=== PATIENT | male | born 1965 | race Caucasian/White ===

== ENCOUNTER → 2024-03-17 | Outpatient (CLI) | payer OTHER, SELFPAY ==
--- NOTE | 2024-03-17 | XR_ITS ---
Examination: Duplex scan of the lower extremity, unilateral left complete Date and time of exam: March 17, 2024 1132 hours INDICATIONS: Left leg swelling and pain beginning 3 weeks ago Technique: Duplex scan of the extremity veins using B-mode/grayscale imaging and Doppler spectral analysis and color flow Attention is directed to internal echogenicity, compression and augmentation involving these veins, color flow assessment, spectral analysis Findings: Major deep venous structures in the extremity demonstrate normal course and caliber. There is no evidence of deep vein thrombosis. Normal color flow and spectral analysis Impression: Negative for DVT..
== END | disposition home or self-care (01) ==
PROVIDERS: PCP Family Medicine; Referring Provider Family Medicine; Visit Provider Family Medicine
DX: M79.605 Pain in left leg (principal); M79.89 Other specified soft tissue disorders
CPT/HCPCS: 93971

== ENCOUNTER 2024-03-24 07:32 | Emergency (ER) | payer OTHER, SELFPAY ==
[2024-03-24 07:52] VITALS: BP 158/77; PULSE 88; RESP 18; TEMP 36.7; O2SAT 96; BMI 26.6
--- NOTE | 2024-03-24 07:55 | PD.EDLOWEX ---
Lower Extremity Injury RME/HPI General Chief Complaint: Extremity Injury, Lower Stated Complaint: left leg pain:wants toradol shot Time Seen by Provider: 03/24/24 07:36 Arrival date/time: 03/24/24 07:32 58-year-old male presents to the emergency department today stating that approximate 1 month ago he had an injection in his spine by specialist up in [place] patient reports since then has been having pain to his left leg. Patient had outpatient ultrasound recently which shows negative for DVT patient requesting Toradol shot Limitations: no limitations Related Data Home Medications ?Medication ?Instructions ?Recorded ?Confirmed duloxetine 60 mg capsule,delayed 60 mg PO BID ##0 04/26/12 08/31/21 release (Cymbalta) aripiprazole 2 mg tablet (Abilify) 30 mg PO HS #0 tabs 03/24/14 08/31/21 buspirone 10 mg tablet 30 mg PO BID 10/18/18 08/31/21 gabapentin 300 mg capsule 300 mg PO TID 10/18/18 08/31/21 quetiapine 50 mg tablet 100 mg PO HS 10/18/18 08/31/21 atorvastatin 10 mg tablet 10 mg PO QDAY 08/31/21 08/31/21 baclofen 10 mg tablet 10 mg PO BID PRN Spasms 08/31/21 08/31/21 [id number]-[id number]-izygrejy 1 drp ophthalmic (eye) TID 08/31/21 08/31/21 80 0.5 %-1 %-0.5 % eye drops (Refresh [facility]) docusate sodium 100 mg capsule 100 cap PO PRN PRN Constipation 08/31/21 08/31/21 furosemide 40 mg tablet 40 mg PO QDAY 08/31/21 08/31/21 ibuprofen 800 mg tablet 800 mg PO TID PRN Pain 08/31/21 08/31/21 ketotifen fumarate 0.025 % (0.035 1 drp ophthalmic (eye) BID 08/31/21 08/31/21 %) eye drops ([facility]) lisinopril 20 1 tab PO QDAY 08/31/21 08/31/21 mg-hydrochlorothiazide 12.5 mg tablet lithium carbonate 300 mg tablet 300 mg PO HS 08/31/21 08/31/21 loratadine 10 mg tablet 10 mg PO QDAY 08/31/21 08/31/21 mirtazapine 30 mg disintegrating 30 mg PO HS 08/31/21 08/31/21 tablet oxycodone-acetaminophen 7.5 mg-325 1 tab PO TID 08/31/21 08/31/21 mg tablet Previous Rx's ?Medication ?Instructions ?Recorded cyclobenzaprine 10 mg tablet 10 mg PO TID PRN muscle spasm 10 03/24/24 days #30 tab-caps Allergies Allergy/AdvReac Type Severity Reaction Status Date / Time morphine Allergy Mild Nausea/Vomi Verified 03/24/24 07:34 tiing Penicillins Allergy Mild SWELLING Verified 03/24/24 07:34 Review of Systems Review of Systems Systems Reviewed: All systems reviewed, normal except as documented Constitutional Constitutional: Reports system reviewed and no additional complaints, except as documented, Denies fever(s) and Denies headache(s) Eyes Eyes: Reports system reviewed and no additional complaints, except as documented and Denies blurry vision ENT Ears, Nose, Mouth, and Throat: Reports system reviewed and no additional complaints, except as documented, Denies headache(s), Denies nasal congestion, Denies nasal discharge and Denies neck pain Cardiovascular Cardiovascular: Reports system reviewed and no additional complaints, except as documented, Denies chest pain and Denies dyspnea Respiratory Respiratory: Reports system reviewed and no additional complaints, except as documented, Denies chest congestion, Denies cough and Denies dyspnea Gastrointestinal Gastrointestinal: Reports system reviewed and no additional complaints, except as documented and Denies abdominal pain Musculoskeletal Musculoskeletal: Reports system reviewed and no additional complaints, except as documented, Denies abnormal gait, Denies arthralgias, Denies joint swelling, Denies neck pain, Denies numbness, Reports stiffness, Denies tingling and Reports other (Leg pain left) Integumentary/Breasts Skin/Breast: Reports system reviewed and no additional complaints, except as documented and Denies rash Neurologic Neurologic: Reports system reviewed and no additional complaints, except as documented, Reports as per HPI, Denies abnormal gait, Denies headache(s), Denies numbness and Denies tingling Past Medical History Past Medical History NEUROLOGIC: Negative Neurological Disorders CARDIAC: Negative Cardiac Disorders ED Exam General Limitations: Present no limitations General appearance: Present alert and in no apparent distress Head Head exam: Present atraumatic, normocephalic and normal inspection Eye Eye exam: Present normal appearance, PERRL and EOMI; Absent conjunctival injection ENT ENT exam: Present normal exam, normal oropharynx and mucous membranes moist Neck Neck exam: Present normal inspection, full ROM and trachea midline Chest Chest inspection: Present normal inspection and symmetric chest wall rise Respiratory Respiratory exam: Present normal lung sounds bilaterally; Absent respiratory distress Cardiovascular Cardiovascular exam: Present regular rate, normal rhythm and normal heart sounds Abdominal Exam Abdominal exam: Present soft and normal bowel sounds; Absent distention, tenderness, guarding, rebound or rigidity Extremities Exam Extremities exam: Present normal inspection, full ROM, normal capillary refill, calf tenderness (Pain in the christensen and calf) and other; Absent tenderness, pedal edema or joint swelling Back Exam Back exam: Present normal inspection and full ROM; Absent tenderness, CVA tenderness (R), CVA tenderness (L), muscle spasm, paraspinal tenderness or vertebral tenderness Neurological Exam Neurological exam: Present alert, oriented X3, CN II-XII intact, normal gait and reflexes normal; Absent motor sensory deficit Psychiatric Psychiatric exam: Present normal affect and normal mood Skin Skin exam: Present warm, dry, intact and normal color Course Quality Measures none Orders Category Date Time Status Ketorolac Inj [Toradol Inj] Med 03/24/24 07:55 Discontinued 30 mg IM X1 ONE Vital Signs Vital signs: Vital Signs Temperature 98.0 F 03/24/24 07:52 Pulse Rate 88 03/24/24 07:52 Respiratory Rate 18 03/24/24 07:52 Blood Pressure 158/77 H 03/24/24 07:52 Pulse Oximetry (%) 96 03/24/24 07:52 Oxygen Delivery Method Room Air 03/24/24 07:52 O2 saturation 96% room air within normal limits Extremity Injury, Lower MDM Narrative MDM Narrative:: 58-year-old male presents to the emergency department today stating that approximate 1 month ago he had an injection in his spine by specialist up in [place] patient reports since then has been having pain to his left leg. Patient had outpatient ultrasound recently which shows negative for DVT patient requesting Toradol shot On exam patient well-appearing patient does not appear ill or toxic patient walks with steady gait Patient reports no saddle anesthesia no loss of bowel or bladder Patient discharged home in no distress to follow-up with primary care doctor in the next 24 to 48 hours and for any worsening symptoms to return to the ER immediately Patient data External records reviewed:: [facility] previous records Clinical information provided by:: patient Social determinants that could affect healthcare access:: none Patient has the following chronic illnesses:: None How is presenting disease/condition affected by chronic disease/condition?: no chronic disease Evaluation data The following diagnostics were reviewed and interpreted by me:: other (specify) (N/A) Lab and/or radiology exams considered but not ordered:: Radiology 7 days ago Interpretation Summary: Findings: Major deep venous structures in the extremity demonstrate normal course and caliber. There is no evidence of deep vein thrombosis. Normal color flow and spectral analysis Impression: Negative for DVT.. Dictated By: Darrel Up MD Signed By: <Electronically signed by Darrel Up MD in [place]> 03/17/24 1530 DD/ 1529 Medications / Prescriptions Medications or Prescriptions considered but not ordered:: Given Medication administrations:: Medication Administration History Discontinued Medications Ketorolac Tromethamine (Ketorolac Inj 30 Mg/Ml Vial) 30 mg IM X1 ONE Stop: 03/24/24 07:56 Last Admin: 03/24/24 08:00 Dose: 30 mg Documented By: GM Given Consultations Consultation(s) initiated? (list below): No Diagnosis Most likely diagnosis given after review of the tests above:: No criteria Admission Indicated Admission indicated?: not indicated Admission Request Was there a request for admission?: No Disposition Plan Disposition Plan: Discharge Discharge Attestation Discharge Attestation: The patient and all family members were given an opportunity to ask questions and understood the discharge instructions. Discharge instructions specifically effects, indications for sooner follow up or return to the emergency department, and the expected course of current diagnosis. Patient condition: Stable Discharge Plan Plan Patient Disposition: HOME (Self Care) Disposition Comment: Stable Prescriptions/Referrals Prescriptions/Med Rec: New cyclobenzaprine 10 mg tablet 10 mg PO TID PRN (Reason: muscle spasm) 10 Days Qty: 30 0RF No Action duloxetine [Cymbalta] 60 MG capsule,delayed release(DR/EC) 60 mg PO BID Qty: 0 aripiprazole [Abilify] 2 MG tablet 30 mg PO HS Qty: 0 buspirone 10 mg Tablet 30 mg PO BID gabapentin 300 mg Capsule 300 mg PO TID quetiapine 50 mg Tablet 100 mg PO HS docusate sodium 100 mg capsule 100 cap PO PRN PRN (Reason: Constipation) Refresh Optive Advanced 0.5-1-0.5 % drops 1 drp OPHTHALMIC (EYE) TID furosemide 40 mg Tablet 40 mg PO QDAY Hold Instructions: Resume on 10/02/21. Follow-up with primary care provider within 1 to 2 weeks of discharge to discuss when to resume mirtazapine 30 mg Tablet,Disintegrating 30 mg PO HS lisinopril-hydrochlorothiazide 20-12.5 mg Tablet 1 tab PO QDAY Hold Instructions: Resume on 10/02/21. Follow-up with PCP regarding when safe to resume ibuprofen 800 mg Tablet 800 mg PO TID PRN (Reason: Pain) baclofen 10 mg Tablet 10 mg PO BID PRN (Reason: Spasms) oxycodone-acetaminophen 7.5-325 mg Tablet 1 tab PO TID lithium carbonate 300 mg Tablet 300 mg PO HS loratadine 10 mg Tablet 10 mg PO QDAY atorvastatin 10 mg Tablet 10 mg PO QDAY ketotifen fumarate [[facility]] 0.025 % (0.035 %) drops 1 drp OPHTHALMIC (EYE) BID Problem List Clinical Impression: Left leg pain Patient/Caregiver Discharge Instructions Education Materials: ED RICE Additional Instructions: Please follow-up with PCP for further evaluation he may need an MRI for further evaluation for worsening concerns return immediately Print Language: Polish Stand Alone Forms: Jessi Award Info., Patient Portal Info Letter PA/NEO Supervising Physician PA/NEO Supervising Physician: Dr [email or web address]
[2024-03-24] MEDS: KETOROLAC INJ 30 MG/ML VIAL IM (08:00)
== END 2024-03-24 08:05 | disposition home or self-care (01) ==
LOC: SERX 08:08
PROVIDERS: Emergency Provider Emergency Medicine; PCP Family Medicine
DX: M79.605 Pain in left leg (principal)
CPT/HCPCS: 96372; 99283; J1885

== ENCOUNTER 2024-03-26 07:48 | Emergency (ER) | payer OTHER, SELFPAY ==
[2024-03-26 08:35] VITALS: BP 150/76; PULSE 87; RESP 19; TEMP 36.9; O2SAT 98; BMI 26.7
--- NOTE | 2024-03-26 09:40 | EDNOTE_ITS ---
Lower Extremity Injury RME/HPI General Chief Complaint: Extremity Injury, Lower Stated Complaint: Leg pain bilateral Time Seen by Provider: 03/26/24 08:10 Source: patient Arrival date/time: 03/26/24 07:48 58-year-old male presents to the emergency department today, history of degenerative disc disease was evaluated by neurosurgeon cheese specialist had spinal injection reports since then he has had exacerbating sciatica symptoms. Reports pain from lumbar area radiating to left leg. Reports 2 days ago had a Toradol shot. Patient had outpatient ultrasound recently which shows negative for DVT. patient requesting Toradol shot. Patient currently at home on [place], gabapentin. Mode of arrival: ambulatory Limitations: no limitations Related Data Home Medications ?Medication ?Instructions ?Recorded ?Confirmed duloxetine 60 mg capsule,delayed 60 mg PO BID ##0 04/26/12 08/31/21 release (Cymbalta) aripiprazole 2 mg tablet (Abilify) 30 mg PO HS #0 tabs 03/24/14 08/31/21 buspirone 10 mg tablet 30 mg PO BID 10/18/18 08/31/21 gabapentin 300 mg capsule 300 mg PO TID 10/18/18 08/31/21 quetiapine 50 mg tablet 100 mg PO HS 10/18/18 08/31/21 atorvastatin 10 mg tablet 10 mg PO QDAY 08/31/21 08/31/21 baclofen 10 mg tablet 10 mg PO BID PRN Spasms 08/31/21 08/31/21 [id number]-[id number]-nqkgyixu 1 drp ophthalmic (eye) TID 08/31/21 08/31/21 80 0.5 %-1 %-0.5 % eye drops (Refresh [employer]ive Advanced) docusate sodium 100 mg capsule 100 cap PO PRN PRN Constipation 08/31/21 08/31/21 furosemide 40 mg tablet 40 mg PO QDAY 08/31/21 08/31/21 ibuprofen 800 mg tablet 800 mg PO TID PRN Pain 08/31/21 08/31/21 ketotifen fumarate 0.025 % (0.035 1 drp ophthalmic (eye) BID 08/31/21 08/31/21 %) eye drops ([facility]) lisinopril 20 1 tab PO QDAY 07/01/22 07/01/22 mg-hydrochlorothiazide 12.5 mg tablet lithium carbonate 300 mg tablet 300 mg PO HS 08/31/21 08/31/21 loratadine 10 mg tablet 10 mg PO QDAY 08/31/21 08/31/21 mirtazapine 30 mg disintegrating 30 mg PO HS 08/31/21 08/31/21 tablet oxycodone-acetaminophen 7.5 mg-325 1 tab PO TID 08/31/21 08/31/21 mg tablet Previous Rx's ?Medication ?Instructions ?Recorded cyclobenzaprine 10 mg tablet 10 mg PO TID PRN muscle spasm 10 03/24/24 days #30 tab-caps Allergies Allergy/AdvReac Type Severity Reaction Status Date / Time morphine Allergy Mild Nausea/Vomi Verified 03/24/24 07:34 tiing Penicillins Allergy Mild SWELLING Verified 03/24/24 07:34 Review of Systems Review of Systems Systems Reviewed: All systems reviewed, normal except as documented Narrative Review of Systems: Gen: No fever, no chills, no weight loss EYES: No discharge, no visual changes, no pain HEENT: No ear pain, no congestion, no sore throat PULM: No shortness of breath, no cough, no congestion CV: No chest pain, no dyspnea on exertion, no palpitations GI: No nausea, no vomiting, no diarrhea, no pain, no constipation : No frequency, no urgency,? no dysuria Musc/skel: No joint pain, + back pain Skin: No rash? ED Exam Narrative Physical exam: General: Sittiing in Exam table in no acute distress, answering questions appropriately HENT: normocephalic, atraumatic, EOMI, PERRLA, moist mucous membranes Chest: chest wall is nontender Cardiac: regular rate and rhythm, normal S1 and S2, no murmurs, rubs, or gallops, capillary refill ?2 seconds Pulmonary: clear to auscultation bilaterally, no wheezing, crackles, or rhonchi Abdominal: active bowel sounds, soft, nontender, nondistended Neuro: A&OX3, CN II-XII intact, sensation grossly intact bilaterally in UE and LE. Skin: no rashes, no ecchymosis Ext: no lower extremity edema General Limitations: Present no limitations Course Quality Measures none Orders Category Date Time Status Ketorolac Inj [Toradol Inj] Med 03/26/24 08:52 Discontinued 60 mg IM X1 ONE Vital Signs Vital signs: Vital Signs Temperature 98.5 F 03/26/24 08:35 Pulse Rate 87 03/26/24 08:35 Respiratory Rate 19 03/26/24 08:35 Blood Pressure 150/76 H 03/26/24 08:35 Pulse Oximetry (%) 98 03/26/24 08:35 Oxygen Delivery Method Room Air 03/26/24 08:35 Extremity Injury, Lower MDM Narrative MDM Narrative:: 58-year-old male presents to the emergency department today stating that approximate 1 month ago he had an injection in his spine by specialist up in [place] patient reports since then has been having pain to his left leg. Im toradol here in ED On exam patient well-appearing patient does not appear ill or toxic patient walks with steady gait Patient reports no saddle anesthesia no loss of bowel or bladder Patient discharged home in no distress to follow-up with primary care doctor in the next 24 to 48 hours and for any worsening symptoms to return to the ER immediately Patient data External records reviewed:: [facility] previous records Clinical information provided by:: patient Social determinants that could affect healthcare access:: none Patient has the following chronic illnesses:: None How is presenting disease/condition affected by chronic disease/condition?: no chronic disease Evaluation data The following diagnostics were reviewed and interpreted by me:: other (specify) (N/A) Lab and/or radiology exams considered but not ordered:: Radiology 7 days ago Interpretation Summary: Findings: Major deep venous structures in the extremity demonstrate normal course and caliber. There is no evidence of deep vein thrombosis. Normal color flow and spectral analysis Impression: Negative for DVT.. Dictated By: Darrel Up MD Signed By: <Electronically signed by Darrel Up MD in [place]> 03/17/24 1530 DD/ 1529 Medications / Prescriptions Medications or Prescriptions considered but not ordered:: Given Medication administrations:: Medication Administration History Discontinued Medications Ketorolac Tromethamine (Ketorolac Inj 60 Mg/2 Ml Vial) 60 mg IM X1 ONE Stop: 03/26/24 08:53 Given Consultations Consultation(s) initiated? (list below): No Diagnosis Extremity Injury, Lower Differential Diagnosis: other (Degenerative disc disease, lumbar spine, lumbar strain.) Most likely diagnosis given after review of the tests above:: Degenerative disc pain sciatica Admission Indicated Admission indicated?: not indicated Admission Request Was there a request for admission?: No Disposition Plan Disposition Plan: Discharge Discharge Attestation Discharge Attestation: The patient and all family members were given an opportunity to ask questions and understood the discharge instructions. Discharge instructions specifically effects, indications for sooner follow up or return to the emergency department, and the expected course of current diagnosis. Patient condition: Stable Discharge Plan Plan Patient Disposition: HOME (Self Care) Patient condition on transfer: Stable Prescriptions/Referrals Prescriptions/Med Rec: No Action duloxetine [Cymbalta] 60 MG capsule,delayed release(DR/EC) 60 mg PO BID Qty: 0 aripiprazole [Abilify] 2 MG tablet 30 mg PO HS Qty: 0 buspirone 10 mg Tablet 30 mg PO BID gabapentin 300 mg Capsule 300 mg PO TID quetiapine 50 mg Tablet 100 mg PO HS docusate sodium 100 mg capsule 100 cap PO PRN PRN (Reason: Constipation) Refresh Optive Advanced 0.5-1-0.5 % drops 1 drp OPHTHALMIC (EYE) TID furosemide 40 mg Tablet 40 mg PO QDAY Hold Instructions: Resume on 10/02/21. Follow-up with primary care provider within 1 to 2 weeks of discharge to discuss when to resume mirtazapine 30 mg Tablet,Disintegrating 30 mg PO HS lisinopril-hydrochlorothiazide 20-12.5 mg Tablet 1 tab PO QDAY Hold Instructions: Resume on 10/02/21. Follow-up with PCP regarding when safe to resume ibuprofen 800 mg Tablet 800 mg PO TID PRN (Reason: Pain) baclofen 10 mg Tablet 10 mg PO BID PRN (Reason: Spasms) oxycodone-acetaminophen 7.5-325 mg Tablet 1 tab PO TID lithium carbonate 300 mg Tablet 300 mg PO HS loratadine 10 mg Tablet 10 mg PO QDAY atorvastatin 10 mg Tablet 10 mg PO QDAY ketotifen fumarate [[facility]] 0.025 % (0.035 %) drops 1 drp OPHTHALMIC (EYE) BID cyclobenzaprine 10 mg tablet 10 mg PO TID PRN (Reason: muscle spasm) 10 Days Qty: 30 0RF Referrals: Venice Gomez MD [Primary Care Provider] - In 1 week Problem List Clinical Impression: Chronic lumbar radiculopathy Patient/Caregiver Discharge Instructions Discharge Activity: activity as tolerated Education Materials: ED Sciatica Additional Instructions: -You will need to rest and have activities modification avoid heavy lifting twisting motions or prolonged sitting or standing. -Will need to follow-up with your doctor in 2 to 3 days for follow-up care Might need physical therapy Might need referral for MRI outpatient, Diagnostic imaging (like MRI) might be used to assess the extent of the bulging disc, particularly if symptoms worsen or persist. -Medications sent please use as directed Can include ibuprofen, muscle relaxant Lifestyle modifications weight reduction Return to the emergency department this any worsening symptoms change in condition. Print Language: Mohawk Stand Alone Forms: Jessi Award Info., Patient Portal Info Letter PA/NEO Supervising Physician TOM/NEO Supervising Physician: Dr. Rodriguez
[2024-03-26] MEDS: KETOROLAC INJ 60 MG/2 ML VIAL IM (09:44)
== END 2024-03-26 10:16 | disposition home or self-care (01) ==
PROVIDERS: Emergency Provider Emergency Medicine; PCP Family Medicine
DX: M54.16 Radiculopathy, lumbar region (principal)
CPT/HCPCS: 96372; 99283; J1885

== ENCOUNTER 2024-03-31 16:56 | Emergency (ER) | payer OTHER, SELFPAY ==
[2024-03-31 17:28] VITALS: BP 122/73; PULSE 85; RESP 18; TEMP 36.6; O2SAT 99; BMI 26.7
--- NOTE | 2024-03-31 17:54 | PD.EDLOWEX ---
Lower Extremity Injury RME/HPI General Chief Complaint: Extremity Injury, Lower Stated Complaint: LEFT LEG SWOLLEN AND PAINFUL X1 WEEK Time Seen by Provider: 03/31/24 17:41 Arrival date/time: 03/31/24 16:56 RME / HPI RME / HPI Narrative: 59-year-old male patient came in for evaluation regarding left leg pain and swelling. This been ongoing for the last 1 week, severity of symptoms moderate. Patient also complained of low back pain and sciatica. Seen by spine surgeon, and had steroid shots to the back. Patient was seen here last week, and ultrasound of the same leg was done and negative for DVT. Denies any other complaints no medications taken prior to arrival. Related Data Home Medications ?Medication ?Instructions ?Recorded ?Confirmed duloxetine 60 mg capsule,delayed 60 mg PO BID ##0 04/26/12 08/31/21 release (Cymbalta) aripiprazole 2 mg tablet (Abilify) 30 mg PO HS #0 tabs 03/24/14 08/31/21 buspirone 10 mg tablet 30 mg PO BID 10/18/18 08/31/21 gabapentin 300 mg capsule 300 mg PO TID 10/18/18 08/31/21 quetiapine 50 mg tablet 100 mg PO HS 10/18/18 08/31/21 atorvastatin 10 mg tablet 10 mg PO QDAY 08/31/21 08/31/21 baclofen 10 mg tablet 10 mg PO BID PRN Spasms 08/31/21 08/31/21 knpkhddiqyjxyezfahqglp-gysxyqjc-mckkczam 1 drp ophthalmic (eye) TID 08/31/21 08/31/21 80 0.5 %-1 %-0.5 % eye drops ([facility]) docusate sodium 100 mg capsule 100 cap PO PRN PRN Constipation 08/31/21 08/31/21 furosemide 40 mg tablet 40 mg PO QDAY 08/31/21 08/31/21 Held on 09/01/21. Instructions: Resume on 10/02/21. Follow-up with primary care provider within 1 to 2 weeks of discharge to discuss when to resume ibuprofen 800 mg tablet 800 mg PO TID PRN Pain 08/31/21 08/31/21 ketotifen fumarate 0.025 % (0.035 1 drp ophthalmic (eye) BID 08/31/21 08/31/21 %) eye drops ([facility]) lisinopril 20 1 tab PO QDAY 08/31/21 08/31/21 mg-hydrochlorothiazide 12.5 mg tablet Held on 09/01/21. Instructions: Resume on 10/02/21. Follow-up with PCP regarding when safe to resume lithium carbonate 300 mg tablet 300 mg PO HS 08/31/21 08/31/21 loratadine 10 mg tablet 10 mg PO QDAY 08/31/21 08/31/21 mirtazapine 30 mg disintegrating 30 mg PO HS 08/31/21 08/31/21 tablet oxycodone-acetaminophen 7.5 mg-325 1 tab PO TID 08/31/21 08/31/21 mg tablet Previous Rx's ?Medication ?Instructions ?Recorded cyclobenzaprine 10 mg tablet 10 mg PO TID PRN muscle spasm 10 03/24/24 days #30 tab-caps furosemide 40 mg tablet (Lasix) 40 mg PO QDAY #20 tabs 03/31/24 potassium chloride 20 mEq 20 meq PO QDAY #20 tabs 03/31/24 tablet,extended release Allergies Allergy/AdvReac Type Severity Reaction Status Date / Time morphine Allergy Mild Nausea/Vomi Verified 03/31/24 16:57 tiing Penicillins Allergy Mild SWELLING Verified 03/31/24 16:57 Review of Systems Review of Systems Narrative Review of Systems: Review of system reviewed and within normal limits except mentioned in HPI ED Exam Narrative Physical exam: VITAL SIGNS: Reviewed. GENERAL APPEARANCE: Alert and interactive, follows commands, no acute distress, HEAD AND FACE: Non-traumatic. ENT: PERRL, pink conjunctivitis, eyelid no trauma, Mucous membrane moist. NECK: Supple, nontender, no nuchal rigidity. CHEST: No tenderness, no crepitus, no paradoxical movement, no retractions. LUNGS: Clear, well ventilated, symmetric, no rales, no wheezing, no ronchi, no stridor, good breath sounds bilaterally. HEART: Regular rate, regular rhythm, no murmur, no gallops. ABDOMEN: Soft, positive bowel sounds, nondistended, no guarding, nontender, no rebound, no masses, RECTAL: Deferred. GENITAL: Deferred. NEUROLOGICAL: Gross motor function intact sensory function intact, Appropriate for age. MUSCULOSKELETAL: low back nontender, full range of motion. EXTREMITIES: Left lower leg swelling, no tenderness to the calf muscle, no redness,, full range of motion. SKIN: Color pink, dry, no rash, no lacerations, no abrasions, no contusions. LYMPHATICS: Deferred. Course Quality Measures none Orders Category Date Time Status Furosemide [Lasix] Med 03/31/24 17:53 Discontinued 40 mg PO X1 ONE Ketorolac Inj [Toradol Inj] Med 03/31/24 17:53 Discontinued 30 mg IM X1 ONE Vital Signs Vital signs: Vital Signs Temperature 97.8 F 03/31/24 17:28 Pulse Rate 85 03/31/24 17:28 Respiratory Rate 18 03/31/24 17:28 Blood Pressure 122/73 03/31/24 17:28 Pulse Oximetry (%) 99 03/31/24 17:28 Oxygen Delivery Method Room Air 03/31/24 17:28 Extremity Injury, Lower MDM Narrative MDM Narrative:: 59-year-old male patient came in for evaluation regarding left leg pain and swelling. This been ongoing for the last 1 week, severity of symptoms moderate. Patient also complained of low back pain and sciatica. Seen by spine surgeon, and had steroid shots to the back. Patient was seen here last week, and ultrasound of the same leg was done and negative for DVT. Denies any other complaints no medications taken prior to arrival. Imaging repeat is not needed at this time, patient had ultrasound that same leg, same complaints last week. Came back unremarkable. Patient will be sent home on Lasix. Patient data External records reviewed:: None Clinical information provided by:: patient Social determinants that could affect healthcare access:: none Patient has the following chronic illnesses:: Chronic back pain, hypertension How is presenting disease/condition affected by chronic disease/condition?: no chronic disease Evaluation data The following diagnostics were reviewed and interpreted by me:: other (specify) Lab and/or radiology exams considered but not ordered:: None Interpretation Summary: None Medications / Prescriptions Medications or Prescriptions considered but not ordered:: None Medication administrations:: Medication Administration History Discontinued Medications Furosemide (Furosemide 40 Mg Tablet) 40 mg PO X1 ONE Stop: 03/31/24 17:54 Ketorolac Tromethamine (Ketorolac Inj 60 Mg/2 Ml Vial) 30 mg IM X1 ONE Stop: 03/31/24 17:54 None Consultations Consultation(s) initiated? (list below): No Diagnosis Extremity Injury, Lower Differential Diagnosis: other (Leg edema, leg pain, chronic leg pain, sciatica) Most likely diagnosis given after review of the tests above:: Leg edema, sciatica Admission Indicated Admission indicated?: not indicated Explain why admission is indicated or not indicated:: None Admission Request Was there a request for admission?: No Disposition Plan Disposition Plan: Discharge Discharge Attestation Discharge Attestation: The patient was given an opportunity to ask questions and understood the discharge instructions. Discharge instructions specifically effects, indications for sooner follow up or return to the emergency department, and the expected course of current diagnosis. Patient condition: Stable Discharge Plan Plan Patient Disposition: HOME (Self Care) Disposition Comment: Stable Prescriptions/Referrals Prescriptions/Med Rec: New furosemide [Lasix] 40 mg tablet 40 mg PO QDAY Qty: 20 0RF potassium chloride 20 mEq tablet extended release 20 meq PO QDAY Qty: 20 0RF No Action duloxetine [Cymbalta] 60 MG capsule,delayed release(DR/EC) 60 mg PO BID Qty: 0 aripiprazole [Abilify] 2 MG tablet 30 mg PO HS Qty: 0 buspirone 10 mg Tablet 30 mg PO BID gabapentin 300 mg Capsule 300 mg PO TID quetiapine 50 mg Tablet 100 mg PO HS docusate sodium 100 mg capsule 100 cap PO PRN PRN (Reason: Constipation) Refresh [facility] 0.5-1-0.5 % drops 1 drp OPHTHALMIC (EYE) TID furosemide 40 mg Tablet 40 mg PO QDAY mirtazapine 30 mg Tablet,Disintegrating 30 mg PO HS lisinopril-hydrochlorothiazide 20-12.5 mg Tablet 1 tab PO QDAY ibuprofen 800 mg Tablet 800 mg PO TID PRN (Reason: Pain) baclofen 10 mg Tablet 10 mg PO BID PRN (Reason: Spasms) oxycodone-acetaminophen 7.5-325 mg Tablet 1 tab PO TID lithium carbonate 300 mg Tablet 300 mg PO HS loratadine 10 mg Tablet 10 mg PO QDAY atorvastatin 10 mg Tablet 10 mg PO QDAY ketotifen fumarate [[facility]] 0.025 % (0.035 %) drops 1 drp OPHTHALMIC (EYE) BID cyclobenzaprine 10 mg tablet 10 mg PO TID PRN (Reason: muscle spasm) 10 Days Qty: 30 0RF Problem List Clinical Impression: Leg edema Patient/Caregiver Discharge Instructions Discharge Activity: activity as tolerated Education Materials: Taking a Diuretic Additional Instructions: Thank you for the opportunity for serving you today. You are stable for discharged . You are advised to: Follow-up with your PCP in 1 to 2 days Return to ED for worsening of symptoms Take medication as prescribed Print Language: Tunisian Stand Alone Forms: Jessi Award Info., Patient Portal Info Letter PA/NEO Supervising Physician TOM/NEO Supervising Physician: Md Ady
[2024-03-31] MEDS: KETOROLAC INJ 60 MG/2 ML VIAL 30 MG IM (18:07)
[2024-03-31 18:08] VITALS: BP 122/73; PULSE 85
[2024-03-31] MEDS: Furosemide 40 MG TABLET PO (18:08)
== END 2024-03-31 20:19 | disposition home or self-care (01) ==
LOC: SERX 18:21
PROVIDERS: Emergency Provider Emergency Medicine; PCP Family Medicine
DX: R60.0 Localized edema (principal); M54.42 Lumbago with sciatica, left side
CPT/HCPCS: 96372; 99283; J1885; A9270

== ENCOUNTER 2024-04-06 11:21 | Emergency (ER) | payer OTHER, SELFPAY ==
[2024-04-06 11:22] VITALS: BMI 26.7
[2024-04-06 11:30] VITALS: BP 155/77; PULSE 83; RESP 19; TEMP 36.6; O2SAT 99
--- NOTE | 2024-04-06 11:31 | PD.EDEXREM ---
ED Extremity Problem RME/HPI General Chief complaint: Extremity Problem,Nontraumatic Stated complaint: LEFT LEG PAIN Time Seen by Provider: 04/06/24 11:31 Arrival date/time: 04/06/24 11:21 59-year-old male with chronic left leg pain presents emergency department today stating he has left leg pain today patient requests Toradol shot request no other medications request no other intervention of any kind patient reports is followed by his PCP Limitations: no limitations Related Data Home Medications ?Medication ?Instructions ?Recorded ?Confirmed duloxetine 60 mg capsule,delayed 60 mg PO BID ##0 04/26/12 08/31/21 release (Cymbalta) aripiprazole 2 mg tablet (Abilify) 30 mg PO HS #0 tabs 03/24/14 08/31/21 buspirone 10 mg tablet 30 mg PO BID 10/18/18 08/31/21 gabapentin 300 mg capsule 300 mg PO TID 10/18/18 08/31/21 quetiapine 50 mg tablet 100 mg PO HS 10/18/18 08/31/21 atorvastatin 10 mg tablet 10 mg PO QDAY 08/31/21 08/31/21 baclofen 10 mg tablet 10 mg PO BID PRN Spasms 08/31/21 08/31/21 vonlrfopdiamsuxqyrdrbn-tkmtrrko-hemnlylt 1 drp ophthalmic (eye) TID 08/31/21 08/31/21 80 0.5 %-1 %-0.5 % eye drops ([facility]) docusate sodium 100 mg capsule 100 cap PO PRN PRN Constipation 08/31/21 08/31/21 furosemide 40 mg tablet 40 mg PO QDAY 08/31/21 08/31/21 Held on 09/01/21. Instructions: Resume on 10/02/21. Follow-up with primary care provider within 1 to 2 weeks of discharge to discuss when to resume ibuprofen 800 mg tablet 800 mg PO TID PRN Pain 08/31/21 08/31/21 ketotifen fumarate 0.025 % (0.035 1 drp ophthalmic (eye) BID 08/31/21 08/31/21 %) eye drops ([facility]) lisinopril 20 1 tab PO QDAY 08/31/21 08/31/21 mg-hydrochlorothiazide 12.5 mg tablet Held on 09/01/21. Instructions: Resume on 10/02/21. Follow-up with PCP regarding when safe to resume lithium carbonate 300 mg tablet 300 mg PO HS 08/31/21 08/31/21 loratadine 10 mg tablet 10 mg PO QDAY 08/31/21 08/31/21 mirtazapine 30 mg disintegrating 30 mg PO HS 08/31/21 08/31/21 tablet oxycodone-acetaminophen 7.5 mg-325 1 tab PO TID 08/31/21 08/31/21 mg tablet Previous Rx's ?Medication ?Instructions ?Recorded furosemide 40 mg tablet (Lasix) 40 mg PO QDAY #20 tabs 03/31/24 potassium chloride 20 mEq 20 meq PO QDAY #20 tabs 03/31/24 tablet,extended release Allergies Allergy/AdvReac Type Severity Reaction Status Date / Time morphine Allergy Mild Nausea/Vomi Verified 04/06/24 11:24 tiing Penicillins Allergy Mild SWELLING Verified 04/06/24 11:24 Review of Systems Review of Systems Systems Reviewed: All systems reviewed, normal except as documented Constitutional Constitutional: Reports system reviewed and no additional complaints, except as documented, Denies fever(s) and Denies headache(s) Eyes Eyes: Reports system reviewed and no additional complaints, except as documented and Denies blurry vision ENT Ears, Nose, Mouth, and Throat: Reports system reviewed and no additional complaints, except as documented, Denies headache(s), Denies nasal congestion and Denies nasal discharge Cardiovascular Cardiovascular: Reports system reviewed and no additional complaints, except as documented, Denies chest pain and Denies dyspnea Respiratory Respiratory: Reports system reviewed and no additional complaints, except as documented, Denies chest congestion, Denies cough and Denies dyspnea Gastrointestinal Gastrointestinal: Reports system reviewed and no additional complaints, except as documented and Denies abdominal pain Musculoskeletal Musculoskeletal: Reports system reviewed and no additional complaints, except as documented, Reports arthralgias and Denies deformity Integumentary/Breasts Skin/Breast: Reports system reviewed and no additional complaints, except as documented and Denies rash Neurologic Neurologic: Reports system reviewed and no additional complaints, except as documented, Reports as per HPI and Denies headache(s) Past Medical History Past Medical History NEUROLOGIC: Positive Traumatic Brain Injury; Negative Neurological Disorders CARDIAC: Positive Hypercholesterolemia, Hypertension and Hypotension; Negative Cardiac Disorders or Congestive Heart Failure RESPIRATORY: Negative Chronic Obstructive Pulmonary Disease (COPD) GASTROINTESTINAL: Negative Gastrointestinal Disorders or Hepatitis GENITOURINARY: Positive Genitourinary Disorders and Kidney Stones; Negative Renal Disease MUSCULOSKELETAL: Positive Musculoskeletal Disorders, Arthritis and Fractures (BLE, DANO) ENT: Positive Cataracts ENDOCRINE: Negative Endocrine Disorders, Diabetes Mellitus Type 1 or Diabetes Mellitus Type 2 HEMATOLOGIC: Negative Blood Disorders PSYCHO/SOCIAL: Positive Depression and Anxiety OTHER HISTORY: Positive Hospitalization, Falls, Chicken Pox and Measles; Negative Autoimmune Disease, Anesthesia Reactions, Organ Transplant, MRSA, VRSA, Vancomycin-Resistant Enterococci, Human Immunodeficiency Virus (HIV), Mumps, Rubella (Kiswahili Measles), Pertussis, Clostridium Difficile or Cancer Family History FAMILY HISTORY: Positive Family Surgery; Negative Family Psychiatric Problems, Family Respiratory Disorders, Family Cardiac Disorders, Family Gastrointestinal Problems, Family Cancer or Family Anesthesia Reaction Surgical History SURGICAL: Positive Abdominal Surgery, Bowel Surgery, Joint Replacement and Open Reduction Internal Fixation; Negative Cardiac Surgery, Endocrine Surgery, Ear Surgery, Nephrectomy, Transurethral Resection, Neurologic Surgery, Brain Shunt, Mastectomy, Lumpectomy, Vasectomy or Organ Transplant Social History SMOKING STATUS: Current every day smoker SECOND HAND EXPOSURE: Yes SUBSTANCE USE: does not use ED Exam General Limitations: Present no limitations General appearance: Present alert and in no apparent distress Head Head exam: Present atraumatic Eye Eye exam: Present normal appearance, PERRL and EOMI ENT ENT exam: Present normal exam, normal oropharynx and mucous membranes moist Neck Neck exam: Present normal inspection, full ROM and trachea midline Chest Chest inspection: Present normal inspection and symmetric chest wall rise Respiratory Respiratory exam: Present normal lung sounds bilaterally Cardiovascular Cardiovascular exam: Present regular rate, normal rhythm and normal heart sounds Abdominal Exam Abdominal exam: Present soft and normal bowel sounds Extremities Exam Extremities exam: Present full ROM and tenderness (Left leg pain); Absent pedal edema, joint swelling or calf tenderness Back Exam Back exam: Present normal inspection and full ROM Neurological Exam Neurological exam: Present alert, oriented X3, CN II-XII intact, normal gait and reflexes normal; Absent motor sensory deficit Psychiatric Psychiatric exam: Present normal affect and normal mood Skin Skin exam: Present warm, dry, intact and normal color Course Quality Measures none Orders Category Date Time Status Ketorolac Inj [Toradol Inj] Med 04/06/24 11:31 Discontinued 30 mg IM X1 ONE Vital Signs Vital signs: Vital Signs Temperature 97.8 F 04/06/24 11:30 Pulse Rate 83 02/04/25 11:30 Respiratory Rate 19 04/06/24 11:30 Blood Pressure 155/77 H 04/06/24 11:30 Pulse Oximetry (%) 99 04/06/24 11:30 Oxygen Delivery Method Room Air 04/06/24 11:30 O2 saturation 99% room air within norm limits Extremity Problem MDM Narrative MDM Narrative:: 59-year-old male with chronic left leg pain presents emergency department today stating he has left leg pain today patient requests Toradol shot request no other medications request no other intervention of any kind patient reports is followed by his PCP On exam patient well-appearing patient does not appear ill or toxic and in no acute distress Patient given Toradol per his request Patient discharged home in no distress to follow-up with primary care doctor in the next 24 to 48 hours and for any worsening symptoms to return to the ER immediately Patient data External records reviewed:: [facility] previous records Clinical information provided by:: patient Social determinants that could affect healthcare access:: none Patient has the following chronic illnesses:: History How is presenting disease/condition affected by chronic disease/condition?: caused by Evaluation data The following diagnostics were reviewed and interpreted by me:: other (specify) (N/A) Lab and/or radiology exams considered but not ordered:: Consider not ordered Interpretation Summary: N/A Medications / Prescriptions Medications or Prescriptions considered but not ordered:: Given Medication administrations:: Medication Administration History Discontinued Medications Ketorolac Tromethamine (Ketorolac Inj 30 Mg/Ml Vial) 30 mg IM X1 ONE Stop: 04/06/24 11:32 Last Admin: 04/06/24 11:38 Dose: 30 mg Documented By: ED Given Consultations Consultation(s) initiated? (list below): No Diagnosis Extremity Problem Differential Diagnosis: other (Chronic leg pain, back pain, sciatica) Most likely diagnosis given after review of the tests above:: Leg pain Admission Indicated Admission indicated?: not indicated Admission Request Was there a request for admission?: No Disposition Plan Disposition Plan: Discharge Discharge Attestation Discharge Attestation: The patient and all family members were given an opportunity to ask questions and understood the discharge instructions. Discharge instructions specifically effects, indications for sooner follow up or return to the emergency department, and the expected course of current diagnosis. Patient condition: Stable Discharge Plan Plan Patient Disposition: HOME (Self Care) Disposition Comment: Stable Prescriptions/Referrals Prescriptions/Med Rec: No Action duloxetine [Cymbalta] 60 MG capsule,delayed release(DR/EC) 60 mg PO BID Qty: 0 aripiprazole [Abilify] 2 MG tablet 30 mg PO HS Qty: 0 buspirone 10 mg Tablet 30 mg PO BID gabapentin 300 mg Capsule 300 mg PO TID quetiapine 50 mg Tablet 100 mg PO HS docusate sodium 100 mg capsule 100 cap PO PRN PRN (Reason: Constipation) Refresh [employer] Advanced 0.5-1-0.5 % drops 1 drp OPHTHALMIC (EYE) TID furosemide 40 mg Tablet 40 mg PO QDAY mirtazapine 30 mg Tablet,Disintegrating 30 mg PO HS lisinopril-hydrochlorothiazide 20-12.5 mg Tablet 1 tab PO QDAY ibuprofen 800 mg Tablet 800 mg PO TID PRN (Reason: Pain) baclofen 10 mg Tablet 10 mg PO BID PRN (Reason: Spasms) oxycodone-acetaminophen 7.5-325 mg Tablet 1 tab PO TID lithium carbonate 300 mg Tablet 300 mg PO HS loratadine 10 mg Tablet 10 mg PO QDAY atorvastatin 10 mg Tablet 10 mg PO QDAY ketotifen fumarate [[facility]away] 0.025 % (0.035 %) drops 1 drp OPHTHALMIC (EYE) BID furosemide [Lasix] 40 mg tablet 40 mg PO QDAY Qty: 20 0RF potassium chloride 20 mEq tablet extended release 20 meq PO QDAY Qty: 20 0RF Problem List Clinical Impression: Chronic leg pain Patient/Caregiver Discharge Instructions Education Materials: ED Chronic Pain Additional Instructions: Please follow up with your primary care doctor in the next 24-48hrs for any worsening symptoms return here immediately Print Language: South Korean Stand Alone Forms: Jessi Award Info., Patient Portal Info Letter PA/NEO Supervising Physician PA/NEO Supervising Physician: Dr Rodriguez
[2024-04-06] MEDS: KETOROLAC INJ 30 MG/ML VIAL IM (11:38)
== END 2024-04-06 11:42 | disposition home or self-care (01) ==
PROVIDERS: Emergency Provider Emergency Medicine; PCP Family Medicine
DX: G89.29 Other chronic pain (principal); M79.605 Pain in left leg
CPT/HCPCS: 96372; 99283; J1885

== ENCOUNTER → 2024-04-22 | Outpatient (CLI) | payer OTHER, SELFPAY ==
[2024-04-22 08:35] LABS: Basophils % (Auto) 0 % (0-2.5); Eosinophils # (Auto) 0.1 Thou/mm3 (0.0-0.5); Eosinophils % (Auto) 1 % (0-10); Hematocrit 43.4 % (41.0-53.0); Hemoglobin 14.6 g/dL (13.5-16.0); Immature Granulocytes % (Auto) 0 % (0-0); Immature Granulocytes Auto 0.01 Thou/mm3 (0.00-0.00); Lymphocytes # (Auto) 1.9 Thou/mm3 (1.0-4.8); Lymphocytes % (Auto) 26 % (10-50); Mean Corpuscular HGB Conc 33.6 g/dl (31.0-37.0); Mean Corpuscular Hemoglobin 31.5 pg (25.0-35.0); Mean Corpuscular Volume 94 fL (80-100); Monocytes # (Auto) 0.4 Thou/mm3 (0.0-0.8); Monocytes % (Auto) 5 % (0-12); Neutrophils # (Auto) 4.9 Thou/mm3 (1.8-7.7); Neutrophils % (Auto) 67 % (37-80); Nucleated Red Blood Cell % 0 /100 WBC (0); Platelet Count 250 Thou/mm3 (140-440); RDW Standard Deviation 44.9 fL (35.1-43.9); Red Blood Count 4.64 Miln/mm3 (4.50-5.90); White Blood Count 7.2 Thou/mm3 (3.8-10.6)
[2024-04-22 08:58] LABS: Prostate Specific Antigen 1.39 ng/mL (0-4.00)
[2024-04-22 09:03] LABS: Alanine Aminotransferase 18 U/L (10-49); Albumin, Serum 4.1 gm/dL (3.4-4.8); Albumin/Globulin Ratio 1.9 (1.2-2.2); Alkaline Phosphatase 118 U/L (46-116); Anion Gap 7 (7-16); Aspartate Amino Transferase 13 U/L (0-34); BUN/Creatinine Ratio 16 Ratio (12-20); Bilirubin,Total 0.7 mg/dL (0.3-1.2); Blood Urea Nitrogen 22 mg/dL (9-23); Calcium 9.8 mg/dL (8.3-10.6); Calcium (Corrected) 9.8 mg/dL (8.5-10.1); Carbon Dioxide 30.4 mMol/L (20.0-31.0); Chloride 105 mMol/L (98-107); Creatinine (Component) 1.4 mg/dL (0.6-1.3); Globulin 2.2 gm/dL (2.3-3.5); Glucose 111 mg/dL (74-106); Osmolality,Calculated 287 (275-295); Potassium 4.8 mMol/L (3.4-5.1); Sodium 142 mMol/L (136-145); Total Protein 6.3 gm/dL (5.7-8.2); eGFR 58 See Note
[2024-04-22 09:19] LABS: Collection Type, Urine Clean Catch
[2024-04-22 10:21] LABS: Bilirubin,Urine Negative (Negative); Blood,Urine 3+ (Negative); Clarity,Urine Turbid (Clear/Hazy); Glucose, Urine Negative (Negative); Ketones,Urine Negative (Negative); Leukocyte Esterase,Urine Negative (Negative); Nitrite,Urine Negative (Negative); Protein,Urine 1+ (Neg - Trace); RBC,Urine 733 /hpf (0-3); Specific Gravity,Urine 1.023 (1.001-1.035); Squamous Epithelial Cell,Urine < 1 /hpf (0-5); Urobilinogen,Urine Negative mg/dL (0.0-1.0); WBC,Urine 5 /hpf (0-5)
[2024-04-22 10:29] LABS: Color,Urine Amber (Lt Yel-Yel)
== END | disposition home or self-care (01) ==
LOC: COPL 07:39
PROVIDERS: PCP Family Medicine; Referring Provider Family Medicine; Visit Provider Family Medicine
DX: N39.498 Other specified urinary incontinence (principal)
CPT/HCPCS: 36415; 80053; 81001; 84153; 85025; 87086

== ENCOUNTER 2024-06-01 14:53 | Emergency (ER) | payer OTHER, SELFPAY ==
[2024-06-01 14:54] VITALS: BMI 26.4
[2024-06-01 15:05] VITALS: BP 138/76; PULSE 85; RESP 20; TEMP 36.4; O2SAT 96
--- NOTE | 2024-06-01 15:16 | PD.EDBACK ---
ED Back Injury Pain RME/HPI General Chief Complaint: Back Pain/Injury Stated Complaint: I WANT A PAIN SHOT LOWER BACK PAIN X2 DAYS Source: patient Arrival date/time: 06/01/24 14:53 59-year-old male with a history of hyperlipidemia, chronic back pain, hypertension presents to the emergency room with a chief complaint of lower back pain x 2 days. Patient states he is here for pain shot as he is out of his pain medication but has an appointment with his primary care provider this . Mode of arrival: ambulatory Limitations: no limitations Related Data Home Medications ?Medication ?Instructions ?Recorded ?Confirmed duloxetine 60 mg capsule,delayed 60 mg PO BID ##0 04/26/12 08/31/21 release (Cymbalta) aripiprazole 2 mg tablet (Abilify) 30 mg PO HS #0 tabs 03/24/14 08/31/21 buspirone 10 mg tablet 30 mg PO BID 10/18/18 08/31/21 gabapentin 300 mg capsule 300 mg PO TID 10/18/18 08/31/21 quetiapine 50 mg tablet 100 mg PO HS 10/18/18 08/31/21 atorvastatin 10 mg tablet 10 mg PO QDAY 08/31/21 08/31/21 baclofen 10 mg tablet 10 mg PO BID PRN Spasms 08/31/21 08/31/21 [id number]-[id number] 1 drp ophthalmic (eye) TID 08/31/21 08/31/21 80 0.5 %-1 %-0.5 % eye drops ([facility]) docusate sodium 100 mg capsule 100 cap PO PRN PRN Constipation 08/31/21 08/31/21 furosemide 40 mg tablet 40 mg PO QDAY 08/31/21 08/31/21 Held on 09/01/21. Instructions: Resume on 10/02/21. Follow-up with primary care provider within 1 to 2 weeks of discharge to discuss when to resume ibuprofen 800 mg tablet 800 mg PO TID PRN Pain 08/31/21 08/31/21 ketotifen fumarate 0.025 % (0.035 1 drp ophthalmic (eye) BID 08/31/21 08/31/21 %) eye drops ([facility]) lisinopril 20 1 tab PO QDAY 08/31/21 08/31/21 mg-hydrochlorothiazide 12.5 mg tablet Held on 09/01/21. Instructions: Resume on 10/02/21. Follow-up with PCP regarding when safe to resume lithium carbonate 300 mg tablet 300 mg PO HS 08/31/21 08/31/21 loratadine 10 mg tablet 10 mg PO QDAY 08/31/21 08/31/21 mirtazapine 30 mg disintegrating 30 mg PO HS 08/31/21 08/31/21 tablet oxycodone-acetaminophen 7.5 mg-325 1 tab PO TID 08/31/21 08/31/21 mg tablet Previous Rx's ?Medication ?Instructions ?Recorded furosemide 40 mg tablet (Lasix) 40 mg PO QDAY #20 tabs 03/31/24 potassium chloride 20 mEq 20 meq PO QDAY #20 tabs 03/31/24 tablet,extended release hydrocodone 5 mg-acetaminophen 325 1 tab PO BID PRN pain #6 tabs 06/01/24 mg tablet Allergies Allergy/AdvReac Type Severity Reaction Status Date / Time morphine Allergy Mild Nausea/Vomi Verified 06/01/24 14:57 tiing Penicillins Allergy Mild SWELLING Verified 06/01/24 14:57 Review of Systems Review of Systems Systems Reviewed: All systems reviewed, normal except as documented Constitutional Constitutional: Reports system reviewed and no additional complaints, except as documented, Denies fatigue, Denies fever(s), Denies headache(s) and Denies weakness Eyes Eyes: Reports system reviewed and no additional complaints, except as documented, Denies blurry vision and Denies change in vision ENT Ears, Nose, Mouth, and Throat: Reports system reviewed and no additional complaints, except as documented, Denies otalgia, Denies headache(s), Denies nasal congestion, Denies throat swelling and Denies vertigo Cardiovascular Cardiovascular: Reports system reviewed and no additional complaints, except as documented, Denies chest pain, Denies dyspnea and Denies dyspnea on exertion Respiratory Respiratory: Reports system reviewed and no additional complaints, except as documented, Denies chest congestion, Denies cough, Denies dyspnea, Denies dyspnea on exertion and Denies wheezing Gastrointestinal Gastrointestinal: Reports system reviewed and no additional complaints, except as documented, Denies abdominal pain, Denies cramping, Denies nausea and Denies vomiting Genitourinary Genitourinary: Reports system reviewed and no additional complaints, except as documented, Denies dysuria and Denies hematuria Musculoskeletal Musculoskeletal: Reports system reviewed and no additional complaints, except as documented and Reports back pain Integumentary/Breasts Skin/Breast: Reports system reviewed and no additional complaints, except as documented and Denies wounds Neurologic Neurologic: Reports system reviewed and no additional complaints, except as documented, Denies confusion, Denies headache(s), Denies lack of coordination, Denies vertigo and Denies weakness Psychiatric Psychiatric: Reports system reviewed and no additional complaints, except as documented, Denies anxiety, Denies confusion, Denies depression, Denies paranoia, Denies suicidal ideation and Denies tactile hallucinations Endocrine Endocrine: Reports system reviewed and no additional complaints, except as documented and Denies fatigue Hematologic/Lymphatic Hematologic/Lymphatic: Reports system reviewed and no additional complaints, except as documented and Denies lymphadenopathy Allergic/Immunologic Allergic/Immunologic: Reports system reviewed and no additional complaints, except as documented, Denies throat swelling, Denies urticaria and Denies wheezing Past Medical History Past Medical History NEUROLOGIC: Positive Traumatic Brain Injury; Negative Neurological Disorders CARDIAC: Positive Hypercholesterolemia, Hypertension and Hypotension; Negative Cardiac Disorders or Congestive Heart Failure RESPIRATORY: Negative Chronic Obstructive Pulmonary Disease (COPD) GASTROINTESTINAL: Negative Gastrointestinal Disorders or Hepatitis GENITOURINARY: Positive Genitourinary Disorders and Kidney Stones; Negative Renal Disease MUSCULOSKELETAL: Positive Musculoskeletal Disorders, Arthritis and Fractures (BLE, DANO) ENT: Positive Cataracts ENDOCRINE: Negative Endocrine Disorders, Diabetes Mellitus Type 1 or Diabetes Mellitus Type 2 HEMATOLOGIC: Negative Blood Disorders PSYCHO/SOCIAL: Positive Depression and Anxiety OTHER HISTORY: Positive Hospitalization, Falls, Chicken Pox and Measles; Negative Autoimmune Disease, Anesthesia Reactions, Organ Transplant, MRSA, VRSA, Vancomycin-Resistant Enterococci, Human Immunodeficiency Virus (HIV), Mumps, Rubella ([place]olan Measles), Pertussis, Clostridium Difficile or Cancer Family History FAMILY HISTORY: Positive Family Surgery; Negative Family Psychiatric Problems, Family Respiratory Disorders, Family Cardiac Disorders, Family Gastrointestinal Problems, Family Cancer or Family Anesthesia Reaction Surgical History SURGICAL: Positive Abdominal Surgery, Bowel Surgery, Joint Replacement and Open Reduction Internal Fixation; Negative Cardiac Surgery, Endocrine Surgery, Ear Surgery, Nephrectomy, Transurethral Resection, Neurologic Surgery, Brain Shunt, Mastectomy, Lumpectomy, Vasectomy or Organ Transplant Social History SMOKING STATUS: Light (< 1 pack/day) SECOND HAND EXPOSURE: Yes SUBSTANCE USE: does not use ED Exam General Limitations: Present no limitations General appearance: Present alert and in no apparent distress Head Head exam: Present atraumatic Eye Eye exam: Present normal appearance, PERRL and EOMI ENT ENT exam: Present normal exam, normal oropharynx and mucous membranes moist Neck Neck exam: Present normal inspection, full ROM and trachea midline Chest Chest inspection: Present normal inspection and symmetric chest wall rise Respiratory Respiratory exam: Present normal lung sounds bilaterally Cardiovascular Cardiovascular exam: Present regular rate, normal rhythm and normal heart sounds Abdominal Exam Abdominal exam: Present soft and normal bowel sounds Extremities Exam Extremities exam: Present normal inspection and full ROM Back Exam Back exam: Present normal inspection, full ROM, tenderness and vertebral tenderness Neurological Exam Neurological exam: Present alert, oriented X3 and CN II-XII intact Psychiatric Psychiatric exam: Present normal affect and normal mood Skin Skin exam: Present warm, dry, intact and normal color Course Quality Measures none Orders Category Date Time Status Ketorolac Inj [Toradol Inj] Med 06/01/24 15:13 Discontinued 60 mg IM X1 ONE Vital Signs Vital signs: Vital Signs Temperature 97.5 F 06/01/24 15:05 Pulse Rate 85 06/01/24 15:05 Respiratory Rate 20 06/01/24 15:05 Blood Pressure 138/76 H 06/01/24 15:05 Pulse Oximetry (%) 96 06/01/24 15:05 Oxygen Delivery Method Room Air 06/01/24 15:05 O2 saturation 96% within normal limit Back Pain / Injury MDM Narrative MDM Narrative:: 59-year-old male with a history of hyperlipidemia, chronic back pain, hypertension presents to the emergency room with a chief complaint of lower back pain x 2 days. Patient states he is here for pain shot as he is out of his pain medication but has an appointment with his primary care provider this . Patient is hemodynamically stable and in no apparent distress Physical examination shows tenderness to the lumbar area of the spine. Patient states has been dealing with his chronic back pain for many years and states he usually comes in for a Toradol injection whenever his pain becomes unbearable. Patient states he ran out of his medication 2 days ago and states he is here for shot of Toradol until he sees his primary care provider this . A shot of Toradol medication was given Patient was discharged and educated to follow-up with primary care provider in the next 24 to 48 hours and return to the emergency room for any evidence of worsening signs or symptoms Patient data External records reviewed:: [facility] previous records Clinical information provided by:: patient Social determinants that could affect healthcare access:: none Patient has the following chronic illnesses:: No chronic illness How is presenting disease/condition affected by chronic disease/condition?: no chronic disease Evaluation data The following diagnostics were reviewed and interpreted by me:: lab results and radiology exam(s) Lab and/or radiology exams considered but not ordered:: Labs and radiology exams considered and ordered Interpretation Summary: N/A Medications / Prescriptions Medications or Prescriptions considered but not ordered:: Medication given Medication administrations:: Medication Administration History Discontinued Medications Ketorolac Tromethamine (Ketorolac Inj 60 Mg/2 Ml Vial) 60 mg IM X1 ONE Stop: 06/01/24 15:14 Medication given Consultations Consultation(s) initiated? (list below): No Diagnosis Differential diagnosis back pain/injury: lumbar radiculopathy, strain of lumbar region, thoracic back pain, discitis and other (Chronic back pain) Most likely diagnosis given after review of the tests above:: Chronic back pain Admission Indicated Admission indicated?: not indicated Admission Request Was there a request for admission?: No Disposition Plan Disposition Plan: Discharge Discharge Attestation Discharge Attestation: The patient and all family members were given an opportunity to ask questions and understood the discharge instructions. Discharge instructions specifically effects, indications for sooner follow up or return to the emergency department, and the expected course of current diagnosis. Patient condition: Stable Discharge Plan Plan Patient Disposition: HOME (Self Care) Prescriptions/Referrals Prescriptions/Med Rec: New hydrocodone-acetaminophen 5-325 mg tablet 1 tab PO BID MDD 10mg PRN (Reason: pain) Qty: 6 0RF No Action duloxetine [Cymbalta] 60 MG capsule,delayed release(DR/EC) 60 mg PO BID Qty: 0 aripiprazole [Abilify] 2 MG tablet 30 mg PO HS Qty: 0 buspirone 10 mg Tablet 30 mg PO BID gabapentin 300 mg Capsule 300 mg PO TID quetiapine 50 mg Tablet 100 mg PO HS docusate sodium 100 mg capsule 100 cap PO PRN PRN (Reason: Constipation) Refresh [facility]ive Advanced 0.5-1-0.5 % drops 1 drp OPHTHALMIC (EYE) TID furosemide 40 mg Tablet 40 mg PO QDAY mirtazapine 30 mg Tablet,Disintegrating 30 mg PO HS lisinopril-hydrochlorothiazide 20-12.5 mg Tablet 1 tab PO QDAY ibuprofen 800 mg Tablet 800 mg PO TID PRN (Reason: Pain) baclofen 10 mg Tablet 10 mg PO BID PRN (Reason: Spasms) oxycodone-acetaminophen 7.5-325 mg Tablet 1 tab PO TID lithium carbonate 300 mg Tablet 300 mg PO HS loratadine 10 mg Tablet 10 mg PO QDAY atorvastatin 10 mg Tablet 10 mg PO QDAY ketotifen fumarate [[facility]] 0.025 % (0.035 %) drops 1 drp OPHTHALMIC (EYE) BID furosemide [Lasix] 40 mg tablet 40 mg PO QDAY Qty: 20 0RF potassium chloride 20 mEq tablet extended release 20 meq PO QDAY Qty: 20 0RF Problem List Clinical Impression: Chronic back pain Patient/Caregiver Discharge Instructions Education Materials: ED Chronic Pain, ED Pain Management: Chronic Additional Instructions: Please follow-up with your primary care provider in the next 24 to 48 hours. For any evidence of worsening signs or symptoms return to the emergency room immediately Print Language: [place] Stand Alone Forms: Jessi Award Info., Patient Portal Info Letter PA/VICE PRESIDENT PLANNING Supervising Physician PA/VICE PRESIDENT PLANNING Supervising Physician: Dr. Marie
[2024-06-01] MEDS: KETOROLAC INJ 60 MG/2 ML VIAL IM (15:35)
== END 2024-06-01 16:00 | disposition home or self-care (01) ==
LOC: SERX 15:35
PROVIDERS: Emergency Provider Emergency Medicine
DX: G89.29 Other chronic pain (principal); I10 Essential (primary) hypertension; M54.50 Low back pain, unspecified; E78.5 Hyperlipidemia, unspecified
CPT/HCPCS: 96372; 99283; J1885

== ENCOUNTER → 2024-06-01 | Outpatient (CLI) | payer OTHER, SELFPAY ==
[2024-06-01 14:42] LABS: Collection Type, Urine Clean Catch
[2024-06-01 14:55] LABS: Bilirubin,Urine Negative (Negative); Blood,Urine Trace (Negative); Clarity,Urine Clear (Clear/Hazy); Color,Urine Yellow (Lt Yel-Yel); Glucose, Urine Negative (Negative); Hyaline Casts,Urine < 1 /hpf (0-1); Ketones,Urine Negative (Negative); Leukocyte Esterase,Urine Negative (Negative); Nitrite,Urine Negative (Negative); PH,Urine 5.5 (5.0-7.0); Protein,Urine Trace (Neg - Trace); RBC,Urine 14 /hpf (0-3); Specific Gravity,Urine 1.028 (1.001-1.035); Squamous Epithelial Cell,Urine < 1 /hpf (0-5); Urobilinogen,Urine Negative mg/dL (0.0-1.0); WBC,Urine 3 /hpf (0-5)
[2024-06-01 15:18] LABS: Anion Gap 6 (7-16); BUN/Creatinine Ratio 12 Ratio (12-20); Blood Urea Nitrogen 17 mg/dL (9-23); Calcium 8.8 mg/dL (8.3-10.6); Carbon Dioxide 26.6 mMol/L (20.0-31.0); Chloride 110 mMol/L (98-107); Creatinine (Component) 1.4 mg/dL (0.6-1.3); Glucose 117 mg/dL (74-106); Osmolality,Calculated 287 (275-295); Potassium 4.3 mMol/L (3.4-5.1); Sodium 143 mMol/L (136-145); eGFR 58 See Note
[2024-06-01 15:19] LABS: Prostate Specific Antigen 1.63 ng/mL (0-4.00)
== END | disposition home or self-care (01) ==
LOC: COPL 14:25
PROVIDERS: PCP Family Medicine; Referring Provider Family Medicine; Visit Provider Family Medicine
DX: N18.2 Chronic kidney disease, stage 2 (mild) (principal)
CPT/HCPCS: 36415; 80048; 81001; 84153

== ENCOUNTER 2024-07-23 15:50 | Emergency (ER) | payer OTHER, SELFPAY ==
[2024-07-23 15:57] VITALS: BP 136/75; PULSE 80; RESP 18; TEMP 36.6; O2SAT 96
[2024-07-23 16:00] VITALS: BMI 27.8
--- NOTE | 2024-07-23 16:05 | PD.EDBACK ---
ED Back Injury Pain RME/HPI General Chief Complaint: Back Pain/Injury Stated Complaint: Sciatic nerve pain Time Seen by Provider: 07/23/24 15:59 Source: patient Arrival date/time: 07/23/24 15:50 59-year-old male with a history of hyperlipidemia, chronic back pain, hypertension, presents to the emergency room with a chief complaint of right sciatica pain Mode of arrival: ambulatory Limitations: no limitations Related Data Home Medications ?Medication ?Instructions ?Recorded ?Confirmed duloxetine 60 mg capsule,delayed 60 mg PO BID ##0 04/26/12 08/31/21 release (Cymbalta) aripiprazole 2 mg tablet (Abilify) 30 mg PO HS #0 tabs 03/24/14 08/31/21 buspirone 10 mg tablet 30 mg PO BID 10/18/18 08/31/21 gabapentin 300 mg capsule 300 mg PO TID 10/18/18 08/31/21 quetiapine 50 mg tablet 100 mg PO HS 10/18/18 08/31/21 atorvastatin 10 mg tablet 10 mg PO QDAY 08/31/21 08/31/21 baclofen 10 mg tablet 10 mg PO BID PRN Spasms 08/31/21 08/31/21 [id number] 1 drp ophthalmic (eye) TID 08/31/21 08/31/21 80 0.5 %-1 %-0.5 % eye drops (Refresh [employer]ive Advanced) docusate sodium 100 mg capsule 100 cap PO PRN PRN Constipation 08/31/21 08/31/21 furosemide 40 mg tablet 40 mg PO QDAY 08/31/21 08/31/21 Held on 09/01/21. Instructions: Resume on 10/02/21. Follow-up with primary care provider within 1 to 2 weeks of discharge to discuss when to resume ibuprofen 800 mg tablet 800 mg PO TID PRN Pain 08/31/21 08/31/21 ketotifen fumarate 0.025 % (0.035 1 drp ophthalmic (eye) BID 08/31/21 08/31/21 %) eye drops ([facility]) lisinopril 20 1 tab PO QDAY 08/31/21 08/31/21 mg-hydrochlorothiazide 12.5 mg tablet Held on 09/01/21. Instructions: Resume on 10/02/21. Follow-up with PCP regarding when safe to resume lithium carbonate 300 mg tablet 300 mg PO HS 08/31/21 08/31/21 loratadine 10 mg tablet 10 mg PO QDAY 08/31/21 08/31/21 mirtazapine 30 mg disintegrating 30 mg PO HS 08/31/21 08/31/21 tablet oxycodone-acetaminophen 7.5 mg-325 1 tab PO TID 08/31/21 08/31/21 mg tablet Previous Rx's ?Medication ?Instructions ?Recorded furosemide 40 mg tablet (Lasix) 40 mg PO QDAY #20 tabs 03/31/24 potassium chloride 20 mEq 20 meq PO QDAY #20 tabs 03/31/24 tablet,extended release hydrocodone 5 mg-acetaminophen 325 1 tab PO BID PRN pain #6 tabs 06/01/24 mg tablet Allergies Allergy/AdvReac Type Severity Reaction Status Date / Time morphine Allergy Mild Nausea/Vomi Verified 07/23/24 15:53 tiing Penicillins Allergy Mild SWELLING Verified 07/23/24 15:53 Review of Systems Review of Systems Systems Reviewed: All systems reviewed, normal except as documented Constitutional Constitutional: Reports system reviewed and no additional complaints, except as documented, Denies fatigue, Denies fever(s), Denies headache(s) and Denies weakness Eyes Eyes: Reports system reviewed and no additional complaints, except as documented, Denies blurry vision and Denies change in vision ENT Ears, Nose, Mouth, and Throat: Reports system reviewed and no additional complaints, except as documented, Denies otalgia, Denies headache(s), Denies nasal congestion, Denies throat swelling and Denies vertigo Cardiovascular Cardiovascular: Reports system reviewed and no additional complaints, except as documented, Denies chest pain, Denies dyspnea and Denies dyspnea on exertion Respiratory Respiratory: Reports system reviewed and no additional complaints, except as documented, Denies chest congestion, Denies cough, Denies dyspnea, Denies dyspnea on exertion and Denies wheezing Gastrointestinal Gastrointestinal: Reports system reviewed and no additional complaints, except as documented, Denies abdominal pain, Denies cramping, Denies nausea and Denies vomiting Genitourinary Genitourinary: Reports system reviewed and no additional complaints, except as documented, Denies dysuria and Denies hematuria Musculoskeletal Musculoskeletal: Reports system reviewed and no additional complaints, except as documented, Reports arthralgias, Denies back pain, Reports joint swelling and Reports limited range of motion Integumentary/Breasts Skin/Breast: Reports system reviewed and no additional complaints, except as documented and Denies wounds Neurologic Neurologic: Reports system reviewed and no additional complaints, except as documented, Denies confusion, Denies headache(s), Denies lack of coordination, Denies vertigo and Denies weakness Psychiatric Psychiatric: Reports system reviewed and no additional complaints, except as documented, Denies anxiety, Denies confusion, Denies depression, Denies paranoia, Denies suicidal ideation and Denies tactile hallucinations Endocrine Endocrine: Reports system reviewed and no additional complaints, except as documented and Denies fatigue Hematologic/Lymphatic Hematologic/Lymphatic: Reports system reviewed and no additional complaints, except as documented and Denies lymphadenopathy Allergic/Immunologic Allergic/Immunologic: Reports system reviewed and no additional complaints, except as documented, Denies throat swelling, Denies urticaria and Denies wheezing Past Medical History Past Medical History NEUROLOGIC: Positive Traumatic Brain Injury; Negative Neurological Disorders CARDIAC: Positive Hypercholesterolemia, Hypertension and Hypotension; Negative Cardiac Disorders or Congestive Heart Failure RESPIRATORY: Negative Chronic Obstructive Pulmonary Disease (COPD) GASTROINTESTINAL: Negative Gastrointestinal Disorders or Hepatitis GENITOURINARY: Positive Genitourinary Disorders and Kidney Stones; Negative Renal Disease MUSCULOSKELETAL: Positive Musculoskeletal Disorders, Arthritis and Fractures (BLE, DANO) ENT: Positive Cataracts ENDOCRINE: Negative Endocrine Disorders, Diabetes Mellitus Type 1 or Diabetes Mellitus Type 2 HEMATOLOGIC: Negative Blood Disorders PSYCHO/SOCIAL: Positive Depression and Anxiety OTHER HISTORY: Positive Hospitalization, Falls, Chicken Pox and Measles; Negative Autoimmune Disease, Anesthesia Reactions, Organ Transplant, MRSA, VRSA, Vancomycin-Resistant Enterococci, Human Immunodeficiency Virus (HIV), Mumps, Rubella (Dutch Measles), Pertussis, Clostridium Difficile or Cancer Family History FAMILY HISTORY: Positive Family Surgery; Negative Family Psychiatric Problems, Family Respiratory Disorders, Family Cardiac Disorders, Family Gastrointestinal Problems, Family Cancer or Family Anesthesia Reaction Surgical History SURGICAL: Positive Abdominal Surgery, Bowel Surgery, Joint Replacement and Open Reduction Internal Fixation; Negative Cardiac Surgery, Endocrine Surgery, Ear Surgery, Nephrectomy, Transurethral Resection, Neurologic Surgery, Brain Shunt, Mastectomy, Lumpectomy, Vasectomy or Organ Transplant Social History SMOKING STATUS: Light (< 1 pack/day) SECOND HAND EXPOSURE: Yes SUBSTANCE USE: does not use ED Exam General Limitations: Present no limitations General appearance: Present alert and in no apparent distress Head Head exam: Present atraumatic Eye Eye exam: Present normal appearance, PERRL and EOMI ENT ENT exam: Present normal exam, normal oropharynx and mucous membranes moist Neck Neck exam: Present normal inspection, full ROM and trachea midline Chest Chest inspection: Present normal inspection and symmetric chest wall rise Respiratory Respiratory exam: Present normal lung sounds bilaterally Cardiovascular Cardiovascular exam: Present regular rate, normal rhythm and normal heart sounds Abdominal Exam Abdominal exam: Present soft and normal bowel sounds Extremities Exam Extremities exam: Present normal inspection and full ROM Expanded Lower Extremity Exam Hip/Pelvis exam: Present normal inspection Upper leg exam: Present normal inspection Knee exam: Present normal inspection Lower leg exam: Present tenderness Foot/toe exam: Present normal inspection Neurovascular/Tendon exam: Present normal capillary refill Gait: observed and limited by pain Back Exam Back exam: Present normal inspection, full ROM and CVA tenderness (L) Neurological Exam Neurological exam: Present alert, oriented X3 and CN II-XII intact Psychiatric Psychiatric exam: Present normal affect and normal mood Skin Skin exam: Present warm, dry, intact and normal color Course Quality Measures none Orders Category Date Time Status Ketorolac Inj [Toradol Inj] Med 07/23/24 16:00 Discontinued 30 mg IM X1 ONE Vital Signs Vital signs: Vital Signs Temperature 97.8 F 07/23/24 15:57 Pulse Rate 80 07/23/24 15:57 Respiratory Rate 18 07/23/24 15:57 Blood Pressure 136/75 H 07/23/24 15:57 Pulse Oximetry (%) 96 07/23/24 15:57 Oxygen Delivery Method Room Air 07/23/24 15:57 O2 saturation 96% within normal limits Back Pain / Injury MDM Narrative MDM Narrative:: 59-year-old male with a history of hyperlipidemia, chronic back pain, hypertension, presents to the emergency room with a chief complaint of left sciatica pain Patient is hemodynamically stable and in no apparent distress Physical examination shows left-sided sciatica pain. Patient states he has chronic back pain and he is having breakthrough pain. 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 Patient was given pain medication and reevaluated in 1 hour with improvement to his symptoms Patient was discharged and educated to follow-up with primary care provider in the next 24 to 48 hours and return to the emergency room for any evidence of worsening signs or symptoms Patient data External records reviewed:: [facility] previous records Clinical information provided by:: patient Social determinants that could affect healthcare access:: none Patient has the following chronic illnesses:: No chronic illness How is presenting disease/condition affected by chronic disease/condition?: no chronic disease Evaluation data The following diagnostics were reviewed and interpreted by me:: lab results and radiology exam(s) Lab and/or radiology exams considered but not ordered:: Labs and radiology exams considered and ordered Interpretation Summary: N/A Medications / Prescriptions Medications or Prescriptions considered but not ordered:: Medication given Medication administrations:: Medication Administration History Discontinued Medications Ketorolac Tromethamine (Ketorolac Inj 60 Mg/2 Ml Vial) 30 mg IM X1 ONE Stop: 07/23/24 16:01 Last Admin: 07/23/24 16:26 Dose: 30 mg Documented By: OA Medication given Consultations Consultation(s) initiated? (list below): No Diagnosis Differential diagnosis back pain/injury: lumbar radiculopathy, sciatica and strain of lumbar region Most likely diagnosis given after review of the tests above:: Sciatica Admission Indicated Admission indicated?: not indicated Admission Request Was there a request for admission?: No Disposition Plan Disposition Plan: Discharge Discharge Attestation Discharge Attestation: The patient and all family members were given an opportunity to ask questions and understood the discharge instructions. Discharge instructions specifically effects, indications for sooner follow up or return to the emergency department, and the expected course of current diagnosis. Patient condition: Stable Discharge Plan Plan Patient Disposition: HOME (Self Care) Discharge Disposition comment: Stable Prescriptions/Referrals Prescriptions/Med Rec: No Action duloxetine [Cymbalta] 60 MG capsule,delayed release(DR/EC) 60 mg PO BID Qty: 0 aripiprazole [Abilify] 2 MG tablet 30 mg PO HS Qty: 0 buspirone 10 mg Tablet 30 mg PO BID gabapentin 300 mg Capsule 300 mg PO TID quetiapine 50 mg Tablet 100 mg PO HS docusate sodium 100 mg capsule 100 cap PO PRN PRN (Reason: Constipation) Refresh Optive Advanced 0.5-1-0.5 % drops 1 drp OPHTHALMIC (EYE) TID furosemide 40 mg Tablet 40 mg PO QDAY mirtazapine 30 mg Tablet,Disintegrating 30 mg PO HS lisinopril-hydrochlorothiazide 20-12.5 mg Tablet 1 tab PO QDAY ibuprofen 800 mg Tablet 800 mg PO TID PRN (Reason: Pain) baclofen 10 mg Tablet 10 mg PO BID PRN (Reason: Spasms) oxycodone-acetaminophen 7.5-325 mg Tablet 1 tab PO TID lithium carbonate 300 mg Tablet 300 mg PO HS loratadine 10 mg Tablet 10 mg PO QDAY atorvastatin 10 mg Tablet 10 mg PO QDAY ketotifen fumarate [[facility]] 0.025 % (0.035 %) drops 1 drp OPHTHALMIC (EYE) BID hydrocodone-acetaminophen 5-325 mg tablet 1 tab PO BID MDD 10mg PRN (Reason: pain) Qty: 6 0RF furosemide [Lasix] 40 mg tablet 40 mg PO QDAY Qty: 20 0RF potassium chloride 20 mEq tablet extended release 20 meq PO QDAY Qty: 20 0RF Problem List Clinical Impression: Sciatica Patient/Caregiver Discharge Instructions Education Materials: ED Sciatica Additional Instructions: Please follow-up with your primary care provider in the next 24 to 48 hours For any evidence of worsening signs or symptoms return the emergency room immediately Print Language: Filipino Stand Alone Forms: Jessi Award Info., Patient Portal Info Letter PA/SYRUP MIXER Supervising Physician PA/SYRUP MIXER Supervising Physician: Dr. Webb
[2024-07-23] MEDS: KETOROLAC INJ 60 MG/2 ML VIAL 30 MG IM (16:26)
== END 2024-07-23 17:37 | disposition home or self-care (01) ==
PROVIDERS: Emergency Provider Family Medicine; PCP Family Medicine
DX: M54.31 Sciatica, right side (principal)
CPT/HCPCS: 96372; 99283; J1885

== ENCOUNTER 2024-07-28 09:02 | Emergency (ER) | payer OTHER, SELFPAY ==
[2024-07-28 09:26] VITALS: BP 125/72; PULSE 75; RESP 19; TEMP 36.8; O2SAT 95; BMI 27.8
--- NOTE | 2024-07-28 09:30 | EDNOTE_ITS ---
<Statement entered by Yaa Gallegos MD - 07/28/24 17:04> As co-signing physician, I was present and available for consult prn. I concur with the plan and care as documented by the midlevel provider. ED Animal Bite RME/HPI General Chief Complaint: Hand/Wrist Problems Stated Complaint: RIGHT HAND SWELLING FROM CAT BITE Source: patient Arrival date/time: 07/28/24 09:02 59-year-old male with a history of hyperlipidemia, hypertension, presents to the emergency room with a chief complaint of swelling and tenderness to his right hand from cat scratches and bites after breaking up to his cats fight yesterday afternoon. Mode of arrival: ambulatory Limitations: no limitations Related Data Home Medications ?Medication ?Instructions ?Recorded ?Confirmed duloxetine 60 mg capsule,delayed 60 mg PO BID ##0 04/0408/31/21 release (Cymbalta) aripiprazole 2 mg tablet (Abilify) 30 mg PO HS #0 tabs 03/24/14 08/31/21 buspirone 10 mg tablet 30 mg PO BID 10/18/18 gabapentin 300 mg capsule 300 mg PO TID 10/18/1808/31 quetiapine 50 mg tablet 100 mg PO HS 10/18/18 atorvastatin 10 mg tablet 10 mg PO QDAY 08/31/2108/31 baclofen 10 mg tablet 10 mg PO BID PRN Spasms 03/2408/31/21 [id number]-[id number] 1 drp ophthal mignon (eye) TID 08/31/21 08/31/21 80 0.5 %-1 %-0.5 % eye drops ([facility]) docusate sodium 100 mg capsule 100 cap PO PRN PRN Cons tipation 08/31/21 08/31/21 furosemide 40 mg tablet 40 mg PO QDAY 08/31/2108/31 Held on 09/01/21. Instructions: Resume on 10/02/21. Follow-up with primary care provider within 1 to 2 weeks of discharge to discuss when to resume ibuprofen 800 mg tablet 800 mg PO TID PRN Pain 08/3108/31/21 ketotifen fumarate 0.025 % (0.035 1 drp ophthalmic (ey e) BID 08/31/21 08/31/21 %) eye drops ([facility]) lisinopril 20 1 tab PO QDAY 08/31/2108/31 mg-hydrochlorothiazide 12.5 mg tablet Held on 09/01/21. Instructions: Resume on 10/02/21. Follow-up with PCP regarding when safe to resume lithium carbonate 300 mg tablet 300 mg PO HS 08/31/21 08/31/21 loratadine 10 mg tablet 10 mg PO QDAY 08/31/2108/31 mirtazapine 30 mg disintegrating 30 mg PO HS 08/31/21 08/31/21 tablet oxycodone-acetaminophen 7.5 mg-325 1 tab PO TID 08/31/21 mg tablet Previous Rx's ?Medication ?Instructions ?Recorded furosemide 40 mg tablet (Lasix) 40 mg PO QDAY #20 tabs 03/31/24 potassium chloride 20 mEq 20 meq PO QDAY #20 tabs 03/04 11/25 tablet,extended release hydrocodone 5 mg-acetaminophen 325 1 tab PO BID PRN pa in #6 tabs 06/01/24 mg tablet doxycycline monohydrate 100 mg 100 mg PO BID 7 days #1 4 caps 07/28/24 capsule Allergies Allergy/AdvReac Type Severity Reaction Status Date / Time morphine Allergy Mild Nausea/Vomi Verified 07/28/24 09:05 tiing Penicillins Allergy Mild SWELLING Verified 07/28/24 09:05 Review of Systems Review of Systems Systems Reviewed: All systems reviewed, normal except as documented Constitutional Constitutional: Reports system reviewed and no additional complaints, except as documented, Denies fatigue, Denies fever(s), Denies headache(s) and Denies weakness Eyes Eyes: Reports system reviewed and no additional complaints, except as documented, Denies blurry vision and Denies change in vision ENT Ears, Nose, Mouth, and Throat: Reports system reviewed and no additional complaints, except as documented, Denies otalgia, Denies headache(s), Denies nasal congestion, Denies throat swelling and Denies vertigo Cardiovascular Cardiovascular: Reports system reviewed and no additional complaints, except as documented, Denies chest pain, Denies dyspnea and Denies dyspnea on exertion Respiratory Respiratory: Reports system reviewed and no additional complaints, except as documented, Denies chest congestion, Denies cough, Denies dyspnea, Denies dyspnea on exertion and Denies wheezing Gastrointestinal Gastrointestinal: Reports system reviewed and no additional complaints, except as documented, Denies abdominal pain, Denies cramping, Denies nausea and Denies vomiting Genitourinary Genitourinary: Reports system reviewed and no additional complaints, except as documented, Denies dysuria and Denies hematuria Musculoskeletal Musculoskeletal: Reports system reviewed and no additional complaints, except as documented and Denies back pain Integumentary/Breasts Skin/Breast: Reports system reviewed and no additional complaints, except as documented and Reports wounds Neurologic Neurologic: Reports system reviewed and no additional complaints, except as documented, Denies confusion, Denies headache(s), Denies lack of coordination, Denies vertigo and Denies weakness Psychiatric Psychiatric: Reports system reviewed and no additional complaints, except as documented, Denies anxiety, Denies confusion, Denies depression, Denies paranoia, Denies suicidal ideation and Denies tactile hallucinations Endocrine Endocrine: Reports system reviewed and no additional complaints, except as documented and Denies fatigue Hematologic/Lymphatic Hematologic/Lymphatic: Reports system reviewed and no additional complaints, except as documented and Denies lymphadenopathy Allergic/Immunologic Allergic/Immunologic: Reports system reviewed and no additional complaints, except as documented, Denies throat swelling, Denies urticaria and Denies wheezing Past Medical History Past Medical History NEUROLOGIC: Positive Traumatic Brain Injury; Negative Neurological Disorders CARDIAC: Positive Hypercholesterolemia, Hypertension and Hypotension; Negative Cardiac Disorders or Congestive Heart Failure RESPIRATORY: Negative Chronic Obstructive Pulmonary Disease (COPD) GASTROINTESTINAL: Negative Gastrointestinal Disorders or Hepatitis GENITOURINARY: Positive Genitourinary Disorders and Kidney Stones; Negative Renal Disease MUSCULOSKELETAL: Positive Musculoskeletal Disorders, Arthritis and Fractures (BLE, DANO) ENT: Positive Cataracts ENDOCRINE: Negative Endocrine Disorders, Diabetes Mellitus Type 1 or Diabetes Mellitus Type 2 HEMATOLOGIC: Negative Blood Disorders PSYCHO/SOCIAL: Positive Depression and Anxiety OTHER HISTORY: Positive Hospitalization, Falls, Chicken Pox and Measles; Negative Autoimmune Disease, Anesthesia Reactions, Organ Transplant, MRSA, VRSA, Vancomycin-Resistant Enterococci, Human Immunodeficiency Virus (HIV), Mumps, Rubella ([place] Measles), Pertussis, Clostridium Difficile or Cancer Family History FAMILY HISTORY: Positive Family Surgery; Negative Family Psychiatric Problems, Family Respiratory Disorders, Family Cardiac Disorders, Family Gastrointestinal Problems, Family Cancer or Family Anesthesia Reaction Surgical History SURGICAL: Positive Abdominal Surgery, Bowel Surgery, Joint Replacement and Open Reduction Internal Fixation; Negative Cardiac Surgery, Endocrine Surgery, Ear Surgery, Nephrectomy, Transurethral Resection, Neurologic Surgery, Brain Shunt, Mastectomy, Lumpectomy, Vasectomy or Organ Transplant Social History SMOKING STATUS: Light (< 1 pack/day) SECOND HAND EXPOSURE: Yes SUBSTANCE USE: does not use ED Exam General Limitations: Present no limitations General appearance: Present alert and in no apparent distress Head Head exam: Present atraumatic Eye Eye exam: Present normal appearance, PERRL and EOMI ENT ENT exam: Present normal exam, normal oropharynx and mucous membranes moist Neck Neck exam: Present normal inspection, full ROM and trachea midline Chest Chest inspection: Present normal inspection and symmetric chest wall rise Respiratory Respiratory exam: Present normal lung sounds bilaterally Cardiovascular Cardiovascular exam: Present regular rate, normal rhythm and normal heart sounds Abdominal Exam Abdominal exam: Present soft and normal bowel sounds Extremities Exam Extremities exam: Present normal inspection and full ROM Expanded Upper Extremity Exam Hand L/R back image: 2 1. Multiple abrasions to the right hand from cat scratches and bites. Vascular exam: Normal capillary refill Back Exam Back exam: Present normal inspection and full ROM Neurological Exam Neurological exam: Present alert, oriented X3 and CN II-XII intact Psychiatric Psychiatric exam: Present normal affect and normal mood Skin Skin exam: Present warm, dry, intact and normal color Course Quality Measures none Orders Category Date Time Status Wound Care NOW Care 07/28/24 09:26 Active TET,DIP/PERT AC (Adult)-Tdap [Boostrix Adult (Tdap) Med 07/28/24 09:26 Discontinued Vacc] 0.5 ml IMI .ONCE ONE Vital Signs Vital signs: Vital Signs Temperature 98.3 F 07/28/24 09:26 Pulse Rate 75 07/28/24 09:26 Respiratory Rate 19 07/28/24 09:26 Blood Pressure 125/72 07/28/24 09:26 Pulse Oximetry (%) 95 07/28/24 09:26 Oxygen Delivery Method Room Air 07/28/24 09:26 Animal Bite MDM Narrative MDM Narrative:: 59-year-old male with a history of hyperlipidemia, hypertension, presents to the emergency room with a chief complaint of swelling and tenderness to his right hand from cat scratches and bites after breaking up to his cats fight yesterday afternoon. Patient is hemodynamically stable and in no apparent distress Physical examination shows multiple abrasions to the right hand. There is no need for any sutures as there is no large lacerations Antibiotics are sent to the patient's pharmacy. Tetanus vaccination was updated Patient was discharged and educated to follow-up with primary care provider in the next 24 to 48 hours and return to the emergency room for any evidence of worsening signs or symptoms Patient data External records reviewed:: [facility] previous records Clinical information provided by:: patient Social determinants that could affect healthcare access:: none Patient has the following chronic illnesses:: Hypertension hyperlipidemia How is presenting disease/condition affected by chronic disease/condition?: u neffected by Evaluation data The following diagnostics were reviewed and interpreted by me:: lab results and radiology exam(s) Lab and/or radiology exams considered but not ordered:: Labs and radiology exams considered and ordered Interpretation Summary: N/A Medications / Prescriptions Medications or Prescriptions considered but not ordered:: Medication given Medication administrations:: Medication Administration History Discontinued Medications Diphtheria/Tetanus/Acell Pertussis (Diphth,Pertuss(Acell),Tet Vac 0.5 Ml Syr- Adult) 0.5 ml IMi .ONCE ONE Stop: 07/28/24 09:27 Rx given Consultations Consultation(s) initiated? (list below): No Diagnosis Differential diagnosis animal bite: bite by animal, cat bite and dog bite Most likely diagnosis given after review of the tests above:: Cat bite Admission Indicated Admission indicated?: not indicated Admission Request Was there a request for admission?: No Disposition Plan Disposition Plan: Discharge Discharge Attestation Discharge Attestation: The patient and all family members were given an opportunity to ask questions and understood the discharge instructions. Discharge instructions specifically effects, indications for sooner follow up or return to the emergency department, and the expected course of current diagnosis. Patient condition: Stable Discharge Plan Plan Patient Disposition: HOME (Self Care) Discharge Disposition comment: Stable Prescriptions/Referrals Prescriptions/Med Rec: New doxycycline monohydrate 100 mg capsule 100 mg PO BID 7 Days Qty: 14 0RF No Action duloxetine [Cymbalta] 60 MG capsule,delayed release(DR/EC) 60 mg PO BID Qty: 0 aripiprazole [Abilify] 2 MG tablet 30 mg PO HS Qty: 0 buspirone 10 mg Tablet 30 mg PO BID gabapentin 300 mg Capsule 300 mg PO TID quetiapine 50 mg Tablet 100 mg PO HS docusate sodium 100 mg capsule 100 cap PO PRN PRN (Reason: Constipation) Refresh [facility]ive Advanced 0.5-1-0.5 % drops 1 drp OPHTHALMIC (EYE) TID furosemide 40 mg Tablet 40 mg PO QDAY mirtazapine 30 mg Tablet,Disintegrating 30 mg PO HS lisinopril-hydrochlorothiazide 20-12.5 mg Tablet 1 tab PO QDAY ibuprofen 800 mg Tablet 800 mg PO TID PRN (Reason: Pain) baclofen 10 mg Tablet 10 mg PO BID PRN (Reason: Spasms) oxycodone-acetaminophen 7.5-325 mg Tablet 1 tab PO TID lithium carbonate 300 mg Tablet 300 mg PO HS loratadine 10 mg Tablet 10 mg PO QDAY atorvastatin 10 mg Tablet 10 mg PO QDAY ketotifen fumarate [[facility]] 0.025 % (0.035 %) drops 1 drp OPHTHALMIC (EYE) BID hydrocodone-acetaminophen 5-325 mg tablet 1 tab PO BID MDD 10mg PRN (Reason: pain) Qty: 6 0RF furosemide [Lasix] 40 mg tablet 40 mg PO QDAY Qty: 20 0RF potassium chloride 20 mEq tablet extended release 20 meq PO QDAY Qty: 20 0RF Problem List Clinical Impression: Cat bite of hand Patient/Caregiver Discharge Instructions Education Materials: What Is Cat Scratch Disease?, ED Animal Bite (General), ED Cat Bite Additional Instructions: Please follow-up with your primary care provider in the next 24 to 48 hours Antibiotics are sent to your pharmacy please pick them up and take them as indicated For any evidence of worsening signs or symptoms return to the emergency room immediately Print Language: Greek Stand Alone Forms: Jessi Award Info., Patient Portal Info Letter Vaccines Vaccines Given During Stay: TDaP PA/DAIRY FARM OPERATOR Supervising Physician PA/DAIRY FARM OPERATOR Supervising Physician: Dr. GALLEGOS
[2024-07-28] MEDS: DIPHTH,PERTUSS(ACELL),TET VAC 0.5 ML SYR- ADULT IMi (10:12)
== END 2024-07-28 10:31 | disposition home or self-care (01) ==
LOC: SERX 09:50
PROVIDERS: Emergency Provider Emergency Medicine; PCP Family Medicine
DX: S61.451A Open bite of right hand, initial encounter (principal); W55.01XA Bitten by cat, initial encounter; Z23 Encounter for immunization
CPT/HCPCS: 90471; 90715; 99282

== ENCOUNTER 2024-08-09 13:04 | Emergency (ER) | payer OTHER, SELFPAY ==
[2024-08-09 13:05] VITALS: BMI 27.8
[2024-08-09 13:11] VITALS: BP 112/70; PULSE 93; RESP 17; TEMP 36.8; O2SAT 95
--- NOTE | 2024-08-09 13:16 | EKG_ITS ---
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
--- NOTE | 2024-08-09 13:16 | XR_ITS ---
Examination: PA lateral chest 2 views TECHNIQUE: Upright PA lateral chest 2 views Date and time: August 09, 2024 1321 hours INDICATIONS: Onset chest pain today. FINDINGS: Normal heart size The lungs are clear. The osseous structures are intact IMPRESSION: No active disease
--- NOTE | 2024-08-09 13:17 | PD.EDRME ---
Rapid Medical Screening Exam RME Arrival date/time: 08/09/24 13:04 59-year-old male with a history of hyperlipidemia, presents to the emergency room with a chief complaint of bilateral lower and upper extremity swelling x 2 days I have greeted and performed a focused initial assessment of this patient. A comprehensive ED assessment and evaluation of the patient, analysis of all test results, and completion of the medical decision making process will be conducted by additional ED providers. Chief Complaint: Hand/Wrist Problems Time Seen by Provider: 08/09/24 13:09 Vital signs: Vital Signs Temperature 98.2 F 08/09/24 13:11 Pulse Rate 93 08/09/24 13:11 Respiratory Rate 17 08/09/24 13:11 Blood Pressure 112/70 08/09/24 13:11 Pulse Oximetry (%) 95 08/09/24 13:11 Oxygen Delivery Method Room Air 08/09/24 13:11 Vital signs reviewed by provider: Yes
[2024-08-09 13:52] LABS: Basophils % (Auto) 1 % (0-2.5); Eosinophils # (Auto) 0.1 Thou/mm3 (0.0-0.5); Eosinophils % (Auto) 1 % (0-10); Hematocrit 40.3 % (41.0-53.0); Hemoglobin 13.4 g/dL (13.5-16.0); Immature Granulocytes % (Auto) 0 % (0-0); Immature Granulocytes Auto 0.02 Thou/mm3 (0.00-0.00); Lymphocytes # (Auto) 2.5 Thou/mm3 (1.0-4.8); Lymphocytes % (Auto) 31 % (10-50); Mean Corpuscular HGB Conc 33.3 g/dl (31.0-37.0); Mean Corpuscular Hemoglobin 31.8 pg (25.0-35.0); Mean Corpuscular Volume 96 fL (80-100); Monocytes # (Auto) 0.4 Thou/mm3 (0.0-0.8); Monocytes % (Auto) 5 % (0-12); Neutrophils # (Auto) 5.1 Thou/mm3 (1.8-7.7); Neutrophils % (Auto) 62 % (37-80); Nucleated Red Blood Cell % 0 /100 WBC (0); Platelet Count 284 Thou/mm3 (140-440); RDW Standard Deviation 49.7 fL (35.1-43.9); Red Blood Count 4.22 Miln/mm3 (4.50-5.90); White Blood Count 8.1 Thou/mm3 (3.8-10.6)
[2024-08-09 14:04] LABS: Collection Type, Urine Clean Catch
[2024-08-09 14:10] LABS: B-Type Natriuretic Peptide < 20 pg/mL (0-100)
[2024-08-09 14:11] LABS: Alanine Aminotransferase 16 U/L (10-49); Albumin, Serum 4.1 gm/dL (3.4-4.8); Albumin/Globulin Ratio 1.9 (1.2-2.2); Alkaline Phosphatase 106 U/L (46-116); Anion Gap 8 (7-16); BUN/Creatinine Ratio 11 Ratio (12-20); Bilirubin,Total 0.5 mg/dL (0.3-1.2); Blood Urea Nitrogen 17 mg/dL (9-23); Calcium 9.3 mg/dL (8.3-10.6); Calcium (Corrected) 9.3 mg/dL (8.5-10.1); Carbon Dioxide 25.3 mMol/L (20.0-31.0); Chloride 107 mMol/L (98-107); Creatinine (Component) 1.5 mg/dL (0.6-1.3); Estimated Creatinine Clearance 60.3 mL/min (>60); Globulin 2.2 gm/dL (2.3-3.5); Glucose 109 mg/dL (74-106); Magnesium 1.9 mg/dL (1.6-2.6); Osmolality,Calculated 281 (275-295); Potassium 4.4 mMol/L (3.4-5.1); Sodium 140 mMol/L (136-145); Total Protein 6.3 gm/dL (5.7-8.2); Troponin I < 0.020 ng/mL (0.0-0.045); eGFR 53 See Note
[2024-08-09 14:30] LABS: Partial Thromboplastin Time 24.8 Seconds (22.0-36.0); Prothrombin Time 11.4 Seconds (9.0-12.2)
[2024-08-09 14:38] LABS: Bilirubin,Urine Negative (Negative); Blood,Urine 2+ (Negative); Color,Urine Yellow (Lt Yel-Yel); Glucose, Urine Negative (Negative); Ketones,Urine Negative (Negative); Leukocyte Esterase,Urine Negative (Negative); Nitrite,Urine Negative (Negative); PH,Urine 5.5 (5.0-7.0); Protein,Urine 1+ (Neg - Trace); RBC,Urine 75 /hpf (0-3); Specific Gravity,Urine 1.029 (1.001-1.035); Squamous Epithelial Cell,Urine < 1 /hpf (0-5); Urobilinogen,Urine Negative mg/dL (0.0-1.0); WBC,Urine 3 /hpf (0-5)
[2024-08-09 14:48] LABS: Clarity,Urine Hazy (Clear/Hazy)
--- NOTE | 2024-08-09 19:39 | PC.NURSE ---
NO ANSWER AT ER LOBBY OR OUTSIDE ER TO BE RE EVALUATED.
--- NOTE | 2024-08-09 19:50 | PC.NURSE ---
NO ANSWER AT ER LOBBY OR OUTSIDE ER TO BE RE EVALUATED.
--- NOTE | 2024-08-09 19:55 | PC.NURSE ---
NO ANSWER AT ER LOBBY OR OUTSIDE ER TO BE RE EVALUATED.
== END 2024-08-09 19:55 | disposition left against medical advice (07) ==
PROVIDERS: Nurse Practitioner Family; Emergency Provider Emergency Medicine; PCP Family Medicine
DX: M79.89 Other specified soft tissue disorders (principal); R94.31 Abnormal electrocardiogram [ECG] [EKG]; R07.9 Chest pain, unspecified; Z53.29 Procedure and treatment not carried out because of patient's decision for other reasons
CPT/HCPCS: 36415; 71046; 80053; 81001; 83735; 83880; 84484; 85025; 85610; 85730; 99281

== ENCOUNTER 2024-09-12 12:13 | Emergency (ER) | payer OTHER, SELFPAY ==
[2024-09-12 12:14] VITALS: BMI 27.8
[2024-09-12 12:49] VITALS: BP 132/88; PULSE 91; RESP 18; TEMP 37; O2SAT 97
--- NOTE | 2024-09-12 13:01 | PD.EDLOWEX ---
Lower Extremity Injury RME/HPI General Chief Complaint: General Adult/Misc Complain Stated Complaint: GENERALIZE PAIN, RAN OUT OF PAIN MEDICATION Time Seen by Provider: 09/12/24 12:38 Arrival date/time: 09/12/24 12:13 This is a 59-year-old male that comes into the emergency room with complaints of chronic back pain. Patient states he ran out of [place] early and he states that he wanted to see if he can give him a Toradol shot. Patient has no new complaints. Patient has no numbness tingling. Patient has no loss of bowel or bladder function. Patient states his chronic pain he usually has. Patient denies any urinary symptoms. Patient has a history of psychotic disorder, hyperlipidemia, depression. Related Data Home Medications ?Medication ?Instructions ?Recorded ?Confirmed duloxetine 60 mg capsule,delayed 60 mg PO BID ##0 04/26/12 08/31/21 release (Cymbalta) aripiprazole 2 mg tablet (Abilify) 30 mg PO HS #0 tabs 03/24/14 08/31/21 buspirone 10 mg tablet 30 mg PO BID 10/18/18 08/31/21 gabapentin 300 mg capsule 300 mg PO TID 10/18/18 08/31/21 quetiapine 50 mg tablet 100 mg PO HS 10/18/18 08/31/21 atorvastatin 10 mg tablet 10 mg PO QDAY 08/31/21 08/31/21 baclofen 10 mg tablet 10 mg PO BID PRN Spasms 08/31/21 08/31/21 [id number]-opjxkkhy-[id number] 1 drp ophthalmic (eye) TID 08/31/21 08/31/21 80 0.5 %-1 %-0.5 % eye drops ([facility]) docusate sodium 100 mg capsule 100 cap PO PRN PRN Constipation 08/31/21 08/31/21 furosemide 40 mg tablet 40 mg PO QDAY 08/31/21 08/31/21 Held on 09/01/21. Instructions: Resume on 10/02/21. Follow-up with primary care provider within 1 to 2 weeks of discharge to discuss when to resume ibuprofen 800 mg tablet 800 mg PO TID PRN Pain 08/31/21 08/31/21 ketotifen fumarate 0.025 % (0.035 1 drp ophthalmic (eye) BID 08/31/21 08/31/21 %) eye drops ([facility]) lisinopril 20 1 tab PO QDAY 08/31/21 08/31/21 mg-hydrochlorothiazide 12.5 mg tablet Held on 09/01/21. Instructions: Resume on 10/02/21. Follow-up with PCP regarding when safe to resume lithium carbonate 300 mg tablet 300 mg PO HS 08/31/21 08/31/21 loratadine 10 mg tablet 10 mg PO QDAY 08/31/21 08/31/21 mirtazapine 30 mg disintegrating 30 mg PO HS 08/31/21 08/31/21 tablet oxycodone-acetaminophen 7.5 mg-325 1 tab PO TID 08/31/21 08/31/21 mg tablet Previous Rx's ?Medication ?Instructions ?Recorded furosemide 40 mg tablet (Lasix) 40 mg PO QDAY #20 tabs 03/31/24 potassium chloride 20 mEq 20 meq PO QDAY #20 tabs 03/31/24 tablet,extended release hydrocodone 5 mg-acetaminophen 325 1 tab PO BID PRN pain #6 tabs 06/01/24 mg tablet Allergies Allergy/AdvReac Type Severity Reaction Status Date / Time morphine Allergy Severe Nausea/Vomi Verified 09/12/24 12:14 tiing Penicillins Allergy Severe SWELLING Verified 09/12/24 12:14 Review of Systems Review of Systems Systems Reviewed: All systems reviewed, normal except as documented Past Medical History Past Medical History NEUROLOGIC: Positive Traumatic Brain Injury; Negative Neurological Disorders CARDIAC: Positive Hypercholesterolemia, Hypertension and Hypotension; Negative Cardiac Disorders or Congestive Heart Failure RESPIRATORY: Negative Chronic Obstructive Pulmonary Disease (COPD) GASTROINTESTINAL: Negative Gastrointestinal Disorders or Hepatitis GENITOURINARY: Positive Genitourinary Disorders and Kidney Stones; Negative Renal Disease MUSCULOSKELETAL: Positive Musculoskeletal Disorders, Arthritis and Fractures (BLE, DANO) ENT: Positive Cataracts ENDOCRINE: Negative Endocrine Disorders, Diabetes Mellitus Type 1 or Diabetes Mellitus Type 2 HEMATOLOGIC: Negative Blood Disorders PSYCHO/SOCIAL: Positive Depression and Anxiety OTHER HISTORY: Positive Hospitalization, Falls, Chicken Pox and Measles; Negative Autoimmune Disease, Anesthesia Reactions, Organ Transplant, MRSA, VRSA, Vancomycin-Resistant Enterococci, Human Immunodeficiency Virus (HIV), Mumps, Rubella (Tajik Measles), Pertussis, Clostridium Difficile or Cancer Family History FAMILY HISTORY: Positive Family Surgery; Negative Family Psychiatric Problems, Family Respiratory Disorders, Family Cardiac Disorders, Family Gastrointestinal Problems, Family Cancer or Family Anesthesia Reaction Surgical History SURGICAL: Positive Abdominal Surgery, Bowel Surgery, Joint Replacement and Open Reduction Internal Fixation; Negative Cardiac Surgery, Endocrine Surgery, Ear Surgery, Nephrectomy, Transurethral Resection, Neurologic Surgery, Brain Shunt, Mastectomy, Lumpectomy, Vasectomy or Organ Transplant Social History SMOKING STATUS: Light (< 1 pack/day) SECOND HAND EXPOSURE: Yes SUBSTANCE USE: does not use ED Exam Narrative Physical exam: VITAL SIGNS: Reviewed. GENERAL APPEARANCE: Alert and interactive, follows commands, no acute distress HEAD AND FACE: Non-traumatic. ENT: PERRL, conjuctiva pink and clear, eyelid no trauma, Mucous membrane moist. NECK: Supple, nontender, no nuchal rigidity. CHEST: No tenderness, no crepitus, no paradoxical movement, no retractions. LUNGS: breathing even and unlabored HEART: Regular rate, cap refill less than 2 seconds ABDOMEN: Soft, nondistended, no guarding, nontender, no rebound, no masses, NEUROLOGICAL: Gross motor function intact sensory function intact, Appropriate for age. MUSCULOSKELETAL: low back nontender, full range of motion. EXTREMITIES: No redness no swelling no skin breakdown on bilateral foot and leg. Distal neurovascular status intact bilateral foot SKIN: Color pink, dry, no rash, no lacerations, no abrasions, no contusions. Course Quality Measures none Orders Category Date Time Status Ketorolac Inj [Toradol Inj] Med 09/12/24 12:59 Discontinued 60 mg IM X1 ONE Ondansetron Odt [Zofran Odt] Med 09/12/24 12:59 Discontinued 4 mg PO X1 ONE Vital Signs Vital signs: Vital Signs Temperature 98.6 F 09/12/24 12:49 Pulse Rate 91 09/12/24 12:49 Respiratory Rate 18 09/12/24 12:49 Blood Pressure 132/88 H 09/12/24 12:49 Pulse Oximetry (%) 97 09/12/24 12:49 Oxygen Delivery Method Room Air 09/12/24 12:49 Extremity Injury, Lower MDM Narrative MDM Narrative:: Patient has no new complaints. Patient states he has a follow-up appointment with his primary provider. Today gave patient a Toradol shot. Patient told to come back to the emergency room if symptoms change or worsen. Patient data External records reviewed:: [facility] previous records Clinical information provided by:: patient Social determinants that could affect healthcare access:: none Patient has the following chronic illnesses:: none How is presenting disease/condition affected by chronic disease/condition?: no chronic disease Evaluation data The following diagnostics were reviewed and interpreted by me:: other (specify) (none ) Lab and/or radiology exams considered but not ordered:: none Interpretation Summary: see note Medications / Prescriptions Medications or Prescriptions considered but not ordered:: none Medication administrations:: Medication Administration History Discontinued Medications Ketorolac Tromethamine (Ketorolac Inj 60 Mg/2 Ml Vial) 60 mg IM X1 ONE Stop: 09/12/24 13:00 Last Admin: 09/12/24 13:13 Dose: 60 mg Documented By: Ondansetron HCl (Ondansetron Odt 4 Mg Tabrap) 4 mg PO X1 ONE; Protocol Stop: 09/12/24 13:00 Last Admin: 09/12/24 13:14 Dose: 4 mg Documented By: see mar Consultations Consultation(s) initiated? (list below): No Diagnosis Most likely diagnosis given after review of the tests above:: chronic pain Admission Indicated Admission indicated?: not indicated Admission Request Was there a request for admission?: No Disposition Plan Disposition Plan: Discharge Discharge Attestation Discharge Attestation: The patient and all family members were given an opportunity to ask questions and understood the discharge instructions. Discharge instructions specifically effects, indications for sooner follow up or return to the emergency department, and the expected course of current diagnosis. Patient condition: Stable Discharge Plan Plan Patient Disposition: HOME (Self Care) Patient condition on transfer: Stable Prescriptions/Referrals Prescriptions/Med Rec: No Action duloxetine [Cymbalta] 60 MG capsule,delayed release(DR/EC) 60 mg PO BID Qty: 0 aripiprazole [Abilify] 2 MG tablet 30 mg PO HS Qty: 0 buspirone 10 mg Tablet 30 mg PO BID gabapentin 300 mg Capsule 300 mg PO TID quetiapine 50 mg Tablet 100 mg PO HS docusate sodium 100 mg capsule 100 cap PO PRN PRN (Reason: Constipation) Ref[facility] 0.5-1-0.5 % drops 1 drp OPHTHALMIC (EYE) TID furosemide 40 mg Tablet 40 mg PO QDAY mirtazapine 30 mg Tablet,Disintegrating 30 mg PO HS lisinopril-hydrochlorothiazide 20-12.5 mg Tablet 1 tab PO QDAY ibuprofen 800 mg Tablet 800 mg PO TID PRN (Reason: Pain) baclofen 10 mg Tablet 10 mg PO BID PRN (Reason: Spasms) oxycodone-acetaminophen 7.5-325 mg Tablet 1 tab PO TID lithium carbonate 300 mg Tablet 300 mg PO HS loratadine 10 mg Tablet 10 mg PO QDAY atorvastatin 10 mg Tablet 10 mg PO QDAY ketotifen fumarate [[facility]] 0.025 % (0.035 %) drops 1 drp OPHTHALMIC (EYE) BID hydrocodone-acetaminophen 5-325 mg tablet 1 tab PO BID MDD 10mg PRN (Reason: pain) Qty: 6 0RF furosemide [Lasix] 40 mg tablet 40 mg PO QDAY Qty: 20 0RF potassium chloride 20 mEq tablet extended release 20 meq PO QDAY Qty: 20 0RF Problem List Clinical Impression: Chronic back pain Patient/Caregiver Discharge Instructions Discharge Activity: activity as tolerated Education Materials: ED Back Pain (Acute or Chronic) Additional Instructions: Follow up with primary provider in 1-2 days. Come back to ED if symptoms change or worsen Print Language: Russian Stand Alone Forms: Jessi Award Info., Patient Portal Info Letter PA/MANAGER WEB APPLICATION Supervising Physician PA/MANAGER WEB APPLICATION Supervising Physician: jeison
[2024-09-12] MEDS: KETOROLAC INJ 60 MG/2 ML VIAL IM (13:13)
[2024-09-12] MEDS: ONDANSETRON ODT 4 MG TABRAP PO (13:14)
== END 2024-09-12 13:25 | disposition home or self-care (01) ==
LOC: SERX 13:29
PROVIDERS: Emergency Provider Nurse Practitioner Family; PCP Family Medicine
DX: G89.29 Other chronic pain (principal); M54.9 Dorsalgia, unspecified; E78.5 Hyperlipidemia, unspecified; F32.A Depression, unspecified
CPT/HCPCS: 96372; 99283; J1885; Q0162

== ENCOUNTER → 2024-09-21 | Outpatient (CLI) | payer OTHER, SELFPAY ==
[2024-09-21 11:33] LABS: Anion Gap 9 (7-16); BUN/Creatinine Ratio 9 Ratio (12-20); Blood Urea Nitrogen 14 mg/dL (9-23); Calcium 9.4 mg/dL (8.3-10.6); Carbon Dioxide 27.0 mMol/L (20.0-31.0); Chloride 110 mMol/L (98-107); Creatinine (Component) 1.6 mg/dL (0.6-1.3); Glucose 107 mg/dL (74-106); Osmolality,Calculated 291 (275-295); Potassium 4.8 mMol/L (3.4-5.1); Sodium 146 mMol/L (136-145); eGFR 49 See Note
== END | disposition home or self-care (01) ==
LOC: COPL 09:22
PROVIDERS: PCP Family Medicine; Referring Provider Family Medicine; Visit Provider Family Medicine
DX: N18.2 Chronic kidney disease, stage 2 (mild) (principal)
CPT/HCPCS: 36415; 80048

== ENCOUNTER → 2024-10-07 | Outpatient (CLI) | payer OTHER, SELFPAY ==
--- NOTE | 2024-10-07 11:30 | XR_ITS ---
Examination: Retroperitoneal ultrasound, complete Technique: Multiple high resolution grayscale images of the retroperitoneum obtained, including kidneys and bladder. Exam date and time:October 07, 2024 1154 hours INDICATIONS: Diagnosis stage III chronic kidney disease L4 years ago FINDINGS: Right kidney 10.4 cm cortex 1.3 cm Left kidney 12.5 cm cortex 1.2 cm Minimal left hydronephrosis Multiple left renal calculi, the largest in the lower pole left kidney 9 mm No bladder mass or bladder calculi Bladder prevoid volume 148 cc Bladder wall thickening 5 mm Prostate volume 31.2 cc no prostate nodules IMPRESSION: Moderate bilateral renal parenchymal scar formation Minimal left hydronephrosis Multiple left renal calculi, the largest lower pole left kidney 9 mm
== END | disposition home or self-care (01) ==
PROVIDERS: PCP Family Medicine; Referring Provider Family Medicine; Visit Provider Family Medicine
DX: N28.89 Other specified disorders of kidney and ureter (principal); N13.30 Unspecified hydronephrosis; N20.0 Calculus of kidney
CPT/HCPCS: 76770

== ENCOUNTER → 2024-10-14 | Outpatient (CLI) | payer OTHER, SELFPAY ==
[2024-10-14 10:12] LABS: Collection Type, Urine Clean Catch; Squamous Epithelial Cell,Urine 0 /hpf (0-5)
[2024-10-14 10:55] LABS: Anion Gap 6 (7-16); BUN/Creatinine Ratio 9 Ratio (12-20); Blood Urea Nitrogen 12 mg/dL (9-23); Calcium 9.8 mg/dL (8.3-10.6); Carbon Dioxide 27.7 mMol/L (20.0-31.0); Chloride 110 mMol/L (98-107); Creatinine (Component) 1.4 mg/dL (0.6-1.3); Glucose 104 mg/dL (74-106); Osmolality,Calculated 286 (275-295); Potassium 4.4 mMol/L (3.4-5.1); Sodium 144 mMol/L (136-145); eGFR 58 See Note
[2024-10-14 10:56] LABS: Bilirubin,Urine Negative (Negative); Blood,Urine Trace (Negative); Clarity,Urine Clear (Clear/Hazy); Color,Urine Yellow (Lt Yel-Yel); Glucose, Urine Negative (Negative); Ketones,Urine Negative (Negative); Leukocyte Esterase,Urine Negative (Negative); Nitrite,Urine Negative (Negative); PH,Urine 6.0 (5.0-7.0); Protein,Urine Trace (Neg - Trace); RBC,Urine 37 /hpf (0-3); Specific Gravity,Urine 1.029 (1.001-1.035); Urobilinogen,Urine 2.0 mg/dL (0.0-1.0); WBC,Urine 3 /hpf (0-5)
== END | disposition home or self-care (01) ==
LOC: COPL 09:52
PROVIDERS: PCP Family Medicine; Referring Provider Family Medicine; Visit Provider Family Medicine
DX: N18.31 Chronic kidney disease, stage 3a (principal)
CPT/HCPCS: 36415; 80048; 81001; 87077; 87086; 87186

== ENCOUNTER → 2025-01-13 | Outpatient (CLI) | payer OTHER, SELFPAY ==
[2025-01-13 11:28] LABS: Collection Type, Urine Clean Catch
[2025-01-13 11:53] LABS: Basophils # (Auto) 0.1 Thou/mm3 (0.0-0.2); Basophils % (Auto) 1 % (0-2.5); Eosinophils # (Auto) 0.1 Thou/mm3 (0.0-0.5); Eosinophils % (Auto) 1 % (0-10); Hematocrit 42.1 % (41.0-53.0); Hemoglobin 14.0 g/dL (13.5-16.0); Immature Granulocytes Auto 0.01 Thou/mm3 (0.00-0.00); Lymphocytes # (Auto) 3.4 Thou/mm3 (1.0-4.8); Lymphocytes % (Auto) 41 % (10-50); Mean Corpuscular HGB Conc 33.3 g/dl (31.0-37.0); Mean Corpuscular Hemoglobin 32.3 pg (25.0-35.0); Mean Corpuscular Volume 97 fL (80-100); Monocytes # (Auto) 0.5 Thou/mm3 (0.0-0.8); Monocytes % (Auto) 6 % (0-12); Neutrophils # (Auto) 4.3 Thou/mm3 (1.8-7.7); Neutrophils % (Auto) 51 % (37-80); Nucleated Red Blood Cell # 0.00 Thou/mm3 (0.00-0.00); Nucleated Red Blood Cell % 0 /100 WBC (0); Platelet Count 267 Thou/mm3 (140-440); RDW Standard Deviation 50.8 fL (35.1-43.9); Red Blood Count 4.34 Miln/mm3 (4.50-5.90); White Blood Count 8.4 Thou/mm3 (3.8-10.6)
[2025-01-13 12:09] LABS: Anion Gap 6 (7-16); BUN/Creatinine Ratio 7 Ratio (12-20); Blood Urea Nitrogen 9 mg/dL (9-23); Calcium 9.1 mg/dL (8.3-10.6); Carbon Dioxide 29.4 mMol/L (20.0-31.0); Chloride 109 mMol/L (98-107); Creatinine (Component) 1.3 mg/dL (0.6-1.3); Glucose 111 mg/dL (74-106); Osmolality,Calculated 286 (275-295); Potassium 4.1 mMol/L (3.4-5.1); Sodium 144 mMol/L (136-145); eGFR > 60 See Note
[2025-01-13 14:07] LABS: Amorphous Crystals,Urine Present (Absent); Bilirubin,Urine Negative (Negative); Blood,Urine Negative (Negative); Calcium Oxalate Crystals,Urine 3+; Clarity,Urine Clear (Clear/Hazy); Color,Urine Yellow (Lt Yel-Yel); Glucose, Urine Negative (Negative); Hyaline Casts,Urine < 1 /hpf (0-1); Ketones,Urine Negative (Negative); Leukocyte Esterase,Urine Negative (Negative); Nitrite,Urine Negative (Negative); PH,Urine 5.5 (5.0-7.0); Protein,Urine Trace (Neg - Trace); RBC,Urine 23 /hpf (0-3); Specific Gravity,Urine 1.021 (1.001-1.035); Squamous Epithelial Cell,Urine < 1 /hpf (0-5); Urobilinogen,Urine 2.0 mg/dL (0.0-1.0); WBC,Urine 5 /hpf (0-5)
== END | disposition home or self-care (01) ==
LOC: COPL 10:38
PROVIDERS: PCP Family Medicine; Referring Provider Family Medicine; Visit Provider Family Medicine
DX: N18.31 Chronic kidney disease, stage 3a (principal); N30.00 Acute cystitis without hematuria
CPT/HCPCS: 36415; 80048; 81001; 85025; 87086

== ENCOUNTER → 2025-01-13 | Outpatient (CLI) | payer OTHER, SELFPAY ==
--- NOTE | 2025-01-13 12:30 | XR_ITS ---
Examination: MRI brain without intravenous contrast. Date and time of exam: January 13, 2025, 1242 hours INDICATIONS: Onset bilateral leg numbness and dizziness beginning 1 year ago, multiple foci increased signal on the FLAIR images, demyelinating disease pattern on the prior MRI brain scan COMPARISON: August 31, 2021 Technique: Multiple axial and sagittal images of the brain obtained. Siemens high-resolution 1.5 Nohemy short bore scanners utilized. Sagittal sections, T1-weighted, TR 500, TE 14, are performed. Axial sections proton-density and T2-weighted have been obtained. Inversion recovery axial images, TR 9, 260, TE 111, TI 2500. Diffusion weighted images, axial sections, TR 4800, TE 128, B value 1000 Axial sections, ADC map, TR 4800, TE 128 Findings: Enlargement of the sella turcica is not present. The optic chiasm and infundibular are not remarkable. Prepontine and interpeduncular cisterns are not enlarged. There is no localized enlargement of the medulla or seamus. Fourth ventricle and cerebellar tonsils appear normal in position. No subacute area of hemorrhage density is seen. Mass in the cerebellopontine angle region is not evident. Globes symmetrical. Orbital musculature including medial lateral rectus muscles do not exhibit abnormality. Diffusion-weighted images demonstrate no focus of restricted diffusion. Increased white matter signal again noted, scattered punctate foci of increased signal in the white matter Mass effect upon the ventricular system is not identified. Impression: No significant change in scattered punctate foci of increased signal in the white matter, demyelinating disease pattern No acute infarct
== END | disposition home or self-care (01) ==
LOC: SMRI 11:14
PROVIDERS: PCP Family Medicine; Referring Provider Psychiatry & Neurology Neurology; Visit Provider Psychiatry & Neurology Neurology
DX: R90.82 White matter disease, unspecified (principal)
CPT/HCPCS: 70551

== ENCOUNTER → 2025-02-09 | Outpatient (CLI) | payer OTHER, SELFPAY ==
[2025-02-09 10:24] LABS: Basophils # (Auto) 0.0 Thou/mm3 (0.0-0.2); Basophils % (Auto) 1 % (0-2.5); Eosinophils # (Auto) 0.1 Thou/mm3 (0.0-0.5); Eosinophils % (Auto) 1 % (0-10); Hematocrit 41.9 % (41.0-53.0); Hemoglobin 13.8 g/dL (13.5-16.0); Immature Granulocytes Auto 0.01 Thou/mm3 (0.00-0.00); Lymphocytes # (Auto) 3.1 Thou/mm3 (1.0-4.8); Lymphocytes % (Auto) 40 % (10-50); Mean Corpuscular HGB Conc 32.9 g/dl (31.0-37.0); Mean Corpuscular Hemoglobin 32.8 pg (25.0-35.0); Mean Corpuscular Volume 100 fL (80-100); Monocytes # (Auto) 0.5 Thou/mm3 (0.0-0.8); Monocytes % (Auto) 6 % (0-12); Neutrophils # (Auto) 4.1 Thou/mm3 (1.8-7.7); Neutrophils % (Auto) 52 % (37-80); Nucleated Red Blood Cell # 0.00 Thou/mm3 (0.00-0.00); Nucleated Red Blood Cell % 0 /100 WBC (0); Platelet Count 248 Thou/mm3 (140-440); RDW Standard Deviation 51.9 fL (35.1-43.9); Red Blood Count 4.21 Miln/mm3 (4.50-5.90); White Blood Count 7.8 Thou/mm3 (3.8-10.6)
[2025-02-09 12:07] LABS: Lithium < 0.10 mEq/L (1.00-1.20)
[2025-02-09 12:17] LABS: Alanine Aminotransferase 14 U/L (10-49); Albumin, Serum 4.4 gm/dL (3.4-4.8); Albumin/Globulin Ratio 1.8 (1.2-2.2); Alkaline Phosphatase 100 U/L (46-116); Anion Gap 8 (7-16); Aspartate Amino Transferase 12 U/L (0-34); BUN/Creatinine Ratio 14 Ratio (12-20); Bilirubin,Direct 0.1 mg/dL (0.0-0.3); Bilirubin,Total 0.3 mg/dL (0.3-1.2); Blood Urea Nitrogen 20 mg/dL (9-23); Calcium 9.3 mg/dL (8.3-10.6); Calcium (Corrected) 9.3 mg/dL (8.5-10.1); Carbon Dioxide 27.3 mMol/L (20.0-31.0); Chloride 111 mMol/L (98-107); Creatinine (Component) 1.4 mg/dL (0.6-1.3); Free T4 (Free Thyroxine) 1.35 ng/dL (0.89-1.76); Globulin 2.4 gm/dL (2.3-3.5); Glucose 114 mg/dL (74-106); Osmolality,Calculated 294 (275-295); Potassium 4.2 mMol/L (3.4-5.1); Sodium 146 mMol/L (136-145); Thyroid Stimulating Hormone 0.98 uIU/mL (0.55-4.78); Total Protein 6.8 gm/dL (5.7-8.2); eGFR 58 See Note
== END | disposition home or self-care (01) ==
LOC: COPL 10:01
PROVIDERS: PCP Family Medicine; Referring Provider Psychiatry & Neurology Psychiatry; Visit Provider Psychiatry & Neurology Psychiatry
DX: Z79.899 Other long term (current) drug therapy (principal); Z51.81 Encounter for therapeutic drug level monitoring
CPT/HCPCS: 36415; 80053; 80076; 80178; 82248; 84439; 84443; 85025